=== PATIENT | male | born 1935 | race Caucasian/White ===

== ENCOUNTER 2017-05-27 17:15 | Emergency (ER) | payer MEDICARE ==
[2017-05-27 22:55] LABS: Hematocrit 44 % (42-52); Hemoglobin 15.3 g/dl (14.0-18.0); Mean Corpuscular HGB Conc 35 g/dl (31-36); Mean Corpuscular Hemoglobin 33 pg (27-31); Mean Corpuscular Volume 93 fL (80-94); Mean Platelet Volume 7 um3 (7.4-10.4); Red Blood Count 4.71 10^6/ul (4.0-5.4); Red Cell Distribution Width 14 % (10.5-15); White Blood Count 9.5 10^3/ul (3.5-10.8)
[2017-05-27 23:08] LABS: Albumin 3.9 g/dL (3.2-5.2); BUN/Creatinine Ratio 16.1 (8-20); C Reactive Protein 6.26 mg/L (< 5.00); Calcium 9.5 mg/dL (8.6-10.3); EGFR African American 100.8 (>60); EGFR Non-African American 78.4 (>60); Potassium 4.1 mmol/L (3.5-5.0); Total Bilirubin 0.4 mg/dL (0.2-1.0); Total Protein 6.9 g/dL (6.4-8.9)
[2017-05-28 00:50] LABS: Urine Bilirubin Negative (Negative); Urine Glucose Negative (Negative); Urine Nitrite Negative (Negative)
[2017-05-28 03:22] VITALS: BP 140/60
--- NOTE | 2017-05-28 07:39 | RAD ---
HISTORY: Fatigue COMPARISONS: None VIEWS: 1: frontal portable view of the chest at 10:43 PM. The right costophrenic angle is partially cut off. FINDINGS: LINES AND TUBES: None. CARDIOMEDIASTINAL SILHOUETTE: The cardiomediastinal silhouette is normal for portable technique. PLEURA: The visualized costophrenic angles are sharp. No pleural abnormalities are noted. LUNG PARENCHYMA: The lungs are clear. ABDOMEN: The upper abdomen is clear. There is no subphrenic gas. BONES AND SOFT TISSUES: Degenerative changes are noted IMPRESSION: LIMITED STUDY. NO ACTIVE CARDIOPULMONARY DISEASE.
--- NOTE | 2017-05-29 12:44 | ED ---
Willi Oneill Benjamin, scribed for YuriubjosemanueliSylvie MD on 05/27/17 at 2255 . Complex/Multi-Sys Presentation - HPI Summary HPI Summary: 81yo male c/o tiredness and low energy for couple of weeks. Pt denies N/V/D, fever, CP, SOB, or any change in appetite, but reports increasingly feeling sleepy all the time. Pt has hx of head injury upon a mechanical fall 5 months ago, which pt had normal CT head. 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 Not on any medicines for his DM. FHx of DM. No focal deficits. No trouble moving all four extremities. - History Of Current Complaint Chief Complaint: EDGeneral Time Seen by Provider: 05/27/17 22:29 Hx Obtained From: Patient, Family/Welfare Administrator - Onset/Duration: Gradual Onset, Lasting Weeks, Still Present Timing: Constant Severity Currently: Mild Severity Initially: Mild Location: Negative Associated Signs And Symptoms: Positive: Weakness. Negative: SOB, Chest Pain, Nausea, Vomiting, Diarrhea, Abdominal Pain - Allergies/Home Medications Allergies/Adverse Reactions: Allergies Allergy/AdvReac Type Severity Reaction Status Date / Time No Known Allergies Allergy Verified 02/14/16 10:16 PMH/Surg Hx/FS Hx/Imm Hx Endocrine/Hematology History: Reports: Hx Diabetes - borderline Denies: Hx Anticoagulant Therapy, Hx Thyroid Disease Cardiovascular History: Denies: Hx Congestive Heart Failure, Hx Deep Vein Thrombosis, Hx Hypertension , Hx Myocardial Infarction, Hx Pacemaker/ICD Respiratory History: Denies: Hx Asthma, Hx Chronic Obstructive Pulmonary Disease (COPD), Hx Lung Cancer, Hx Pneumonia, Hx Pulmonary Embolism GI History: Denies: Hx Gall Bladder Disease, Hx Gastrointestinal Bleed, Hx Ulcer, Hx Urosepsis History: Denies: Hx Kidney Stones, Hx Renal Disease Sensory History: Denies: Hx Hearing Aid Neurological History: Denies: Hx Dementia, Hx Migraine, Hx Seizures, Hx Transient Ischemic Attacks (TIA) Psychiatric History: Reports: Hx Depression Denies: Hx Anxiety, Hx Panic Disorder, Hx Schizophrenia, Hx Bipolar Disorder - Surgical History Surgery Procedure, Year, and Place: tonsils and adenoids; inguinal hernia Infectious Disease History: Yes Infectious Disease History: Denies: Hx Clostridium Difficile, Hx Hepatitis, Hx Human Immunodeficiency Virus (HIV), Hx of Known/Suspected MRSA, Hx Shingles, Hx Tuberculosis, Hx Known/ Suspected VRE, Hx Known/Suspected VRSA, History Other Infectious Disease, Traveled Outside the [place] in Last 30 Days - Family History Known Family History: Positive: Diabetes Negative: Cardiac Disease, Hypertension - Social History Lives: With Family Alcohol Use: Rare Hx Substance Use: No Substance Use Type: Reports: None Hx Tobacco Use: No Smoking Status (MU): Never Smoked Tobacco Have You Smoked in the Last Year: No Review of Systems Positive: Fatigue. Negative: Fever, Chills Eyes: Negative ENT: Negative Cardiovascular: Negative Negative: Chest Pain Negative: Shortness Of Breath Negative: Abdominal Pain, Vomiting, Diarrhea, Nausea Genitourinary: Negative Musculoskeletal: Negative Skin: Negative Neurological: Negative Psychological: Normal All Other Systems Reviewed And Are Negative: Yes Physical Exam - Summary Physical Exam Summary: Appearance: Well-Appearing, no pain distress, well nourished Skin: warm, skin color reflects adequate perfusion, dry, no acute skin lesions Head Exam: Normal Eye Exam: EOMI, PERRL, conjunctiva clear ENT: pharynx nml, TM nml Neck exam: Supple, nontender Respiratory Exam: CTA, breath sounds present, no rales, no rhonchi, no wheezes Cardiovascular Exam: RRR, S1, S2, No Murmur, No rub, No gallops, pulses symmetrical Abdomen Description: +BS, Nontender, Soft, no guarding, no rebound, nondistended, no organomegaly Musculoskeletal: Normal, Strength/ROM Intact Neurological Exam: nml, sens/motor intact, A&Ox3, no cerebellar dysfunction Psychological Exam: affect/mood appropriate Triage Information Reviewed: Yes Vital Signs On Initial Exam: Initial Vitals Temp Pulse Resp BP Pulse Ox 97.3 F 59 18 146/66 95 05/27/17 17:29 05/27/17 17:29 05/27/17 17:29 05/27/17 17:29 05/27/17 17:29 Vital Signs Reviewed: Yes - Marisela Coma Scale Coma Scale Total: 15 Diagnostics - Vital Signs Vital Signs Temp Pulse Resp BP Pulse Ox 05/27/17 22:06 61 114/86 95 05/27/17 22:05 57 94 05/27/17 20:25 97.7 F 59 18 146/62 97 05/27/17 17:29 97.3 F 59 18 146/66 95 - Laboratory Lab Results: Lab Results 05/27/17 05/27/17 05/27/17 Range/Units 22:41 22:41 22:41 WBC 9.5 (3.5-10.8) 10^3/ul RBC 4.71 (4.0-5.4) 10^6/ul Hgb 15.3 (14.0-18.0) g/dl Hct 44 (42-52) % MCV 93 (80-94) fL MCH 33 H (27-31) pg MCHC 35 (31-36) g/dl RDW 14 (10.5-15) % Plt Count 286 (150-450) 10^3/ul MPV 7 L (7.4-10.4) um3 INR (Anticoag Therapy) (0.89-1.11) Sodium 137 (133-145) mmol/L Potassium 4.1 (3.5-5.0) mmol/L Chloride 101 (101-111) mmol/L Carbon Dioxide 30 (22-32) mmol/L Anion Gap 6 (2-11) mmol/L BUN 15 (6-24) mg/dL Creatinine 0.93 (0.67-1.17) mg/dL Est GFR ( Amer) 100.8 (>60) Est GFR (Non-Af Amer) 78.4 (>60) BUN/Creatinine Ratio 16.1 (8-20) Glucose 116 H (70-100) mg/dL Lactic Acid (0.5-2.0) mmol/L Calcium 9.5 (8.6-10.3) mg/dL Total Bilirubin 0.40 (0.2-1.0) mg/dL AST 18 (13-39) U/L ALT 21 (7-52) U/L Alkaline Phosphatase 58 (34-104) U/L Total Creatine Kinase 122 (10-223) U/L CK-MB (CK-2) 2.3 (0.6-6.3) ng/mL Troponin I 0.00 (<0.04) ng/mL C-Reactive Protein 6.26 H (< 5.00) mg/L B-Natriuretic Peptide 49 ( - 100) pg/mL Total Protein 6.9 (6.4-8.9) g/dL Albumin 3.9 (3.2-5.2) g/dL Globulin 3.0 (2-4) g/dL Albumin/Globulin Ratio 1.3 (1-3) Urine Color Urine Appearance Urine pH (5-9) Ur Specific [place] (1.010-1.030) Urine Protein (Negative) Urine Ketones (Negative) Urine Blood (Negative) Urine Nitrate (Negative) Urine Bilirubin (Negative) Urine Urobilinogen (Negative) Ur Leukocyte Esterase (Negative) Urine Glucose (Negative) 05/27/17 05/27/17 05/28/17 Range/Units 22:41 22:41 00:35 WBC (3.5-10.8) 10^3/ul RBC (4.0-5.4) 10^6/ul Hgb (14.0-18.0) g/dl Hct (42-52) % MCV (80-94) fL MCH (27-31) pg MCHC (31-36) g/dl RDW (10.5-15) % Plt Count (150-450) 10^3/ul MPV (7.4-10.4) um3 INR (Anticoag Therapy) 0.94 (0.89-1.11) Sodium (133-145) mmol/L Potassium (3.5-5.0) mmol/L Chloride (101-111) mmol/L Carbon Dioxide (22-32) mmol/L Anion Gap (2-11) mmol/L BUN (6-24) mg/dL Creatinine (0.67-1.17) mg/dL Est GFR ( Amer) (>60) Est GFR (Non-Af Amer) (>60) BUN/Creatinine Ratio (8-20) Glucose (70-100) mg/dL Lactic Acid 1.7 (0.5-2.0) mmol/L Calcium (8.6-10.3) mg/dL Total Bilirubin (0.2-1.0) mg/dL AST (13-39) U/L ALT (7-52) U/L Alkaline Phosphatase (34-104) U/L Total Creatine Kinase (10-223) U/L CK-MB (CK-2) (0.6-6.3) ng/mL Troponin I (<0.04) ng/mL C-Reactive Protein (< 5.00) mg/L B-Natriuretic Peptide ( - 100) pg/mL Total Protein (6.4-8.9) g/dL Albumin (3.2-5.2) g/dL Globulin (2-4) g/dL Albumin/Globulin Ratio (1-3) Urine Color Yellow Urine Appearance Clear Urine pH 5.0 (5-9) Ur Specific [place] 1.021 (1.010-1.030) Urine Protein Negative (Negative) Urine Ketones Negative (Negative) Urine Blood Negative (Negative) Urine Nitrate Negative (Negative) Urine Bilirubin Negative (Negative) Urine Urobilinogen Negative (Negative) Ur Leukocyte Esterase Negative (Negative) Urine Glucose Negative (Negative) Result Diagrams: 05/27/17 22:41 05/27/17 22:41 Lab Statement: Any lab studies that have been ordered have been reviewed, and results considered in the medical decision making process. - Radiology CXR Xray Interpretation: No Acute Changes - No acute cardiopulmonary disease. Radiology Interpretation Completed By: ED Physician - EKG 2479. Cardiac Rate: Bradycardia - 52bpm EKG Rhythm: Sinus Bradycardia EKG Interpretation: low voltage across all leads. No acute ischemic changes Complex Multi-Symp Course/Dx Course Of Treatment: Reviewed pts medication and allergy lists. High blood pressure noted. - Diagnoses Provider Diagnoses: Fatigue Discharge - Discharge Plan Condition: Stable Disposition: HOME Patient Education Materials: Weakness (ED) Referrals: Gaby Dickey MD [Medical Doctor] - Marianela Botello MD [Primary Care Provider] - The documentation as recorded by the Willi hauser Benjamin accurately reflects the service I personally performed and the decisions made by Alvina peck Afoma Frances, MD.
== END 2017-05-28 01:12 | disposition home or self-care (01) ==
LOC: ED 17:15
DX: R53.83 Other fatigue (principal); R53.1 Weakness; E11.9 Type 2 diabetes mellitus without complications
CPT/HCPCS: 36415; 71010; 80053; 81003; 82550; 82553; 83605; 83880; 84484; 85027; 85610; 86140; 93005; 99283

== ENCOUNTER 2018-06-17 14:22 | Emergency (ER) | payer MEDICARE ==
--- OUTSIDE RECORDS SUMMARY | 2018-06-17 14:30 | XMS REPORT ---
:1935 External Reference #:[id number] Author Organization [facility] Address [address] [place] [address] Phone [phone] Care Team Providers Name Role Phone Marianela Botello Care Team Information Websphere Consultant Unavailable Marianela Botello Primary Care Physician Unavailable Payers Type Date Identification Numbers Payment Provider Subscriber Medicare Primary Effective: Policy Number: Medicare [place] Deny Bundy 2002 [id number] PayID: [id number] [address] [place] [address] Medigap Part B Effective: Policy Number: [facility] Deny Valle 2013 [id number] Options Nitin Group Name: [facility] Supplement Plan [id number] PayID: [id number] [place] [address] Problems Date Description Provider Status Onset: 01/31/2018 Type 2 diabetes mellitus Marianela Botello M.D. Active Onset: 04/25/2017 Impaired fasting glycaemia Marianela Botello M.D. 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 Active Onset: 05/23/2012 Symptom of skin and integumentary Marianela Botello M.D. Active tissue Onset: 05/23/2012 Psoriasis Marianela Botello M.D. Active Onset: 05/23/2012 Benign prostatic hypertrophy without Marianela Botello M.D. Active outflow obstruction Onset: 05/23/2012 Arthralgia of the ankle and/or foot Marianela Botello M.D. Active Onset: 05/23/2012 Overweight Marianela Botello M.D. Active Onset: 11/30/2011 Depressive disorder Marianela Botello M.D. Active Onset: 11/30/2011 Nocturia Marianela Botello M.D. Active Family History Date Family Member(s) Problem(s) Comments General No family hx lung,colon, breast.No RI/Stroke. Father . 70. DM Mother 66, ovarian cancer. Number of Children 4 girls with first , one boy with current , Lizzie. All healthy. First Brother healthy. [place]. Second Brother as of 03/26/2017. healthy. [place]. First Sister early 60's, Cancer started in her spine. 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 Cigarette Use Used to smoke a pipe Quit age mid 20's. ETOH Use Social Alcohol 6 drinks a year. Smoking Patient is a former smoker Exercise Type/Frequency Exercises sporadically low Current back pain with walking, looking into joining gym Seat Belt/Car Seat Always uses a seat belt Allergies, Adverse Reactions, Alerts Date Description Reaction Status Severity Comments 11/30/2011 NKDA active 11/30/2010 Nkma inactive Medications Medication Date Status Form Strength Qnty SIG Indications Ordering Provider Gluco Perfect 3 11/22 Active Device 3Meter 1unit one device R73.01 [place] Blood Glucose /2017 s so twice Jeff, Meter daily dosing [employer] Citalopram 07/08 Active Tablets 40mg 30tab Take One F32.9 Marianela Patel Hydrobromide /2013 s Tablet By Ayan, Mouth Once M.D. Daily Aspirin 81 05/10 Active Tablets 81mg 1 by mouth every day [facility] Finasteride Active Tablets 5mg 1 by mouth Unknown /0000 every day Donepezil HCL Active Tablets 10mg 1 by mouth Unknown /0000 every day Vitamin D Active Capsules 2000Unit 1 by mouth Unknown /0000 every day Metformin HCL 11/22 Hx Tablets 500mg 90tab 1 by mouth R73.01 s every day Jeff, - for two [employer]NEY 01/31 weeks, increase to 2 by mouth daily if tolerated after two weeks Advair Diskus 10/15 Hx Aerosol 100-50mcg 60uni 1 puff twice /Dose ts a day, rinse Jeff, - after use [employer]NEY 10/25 Cyanocobalamin 04/25 Hx Solution 1000mcg/M 12uni inject 1ml Marianela L. /2016 L ts intramuscula Ayan, - rly once a M.D. Vitamin D 04/02 Hx Capsules [id number] 8caps take 1 Marianela L. (Ergocalciferol /2015 capsule by Ayan, ) - mouth once M.D. 03/18 weekly for weeks. Physical 01/18 Hx evaluate and M54.5 Marianela L. 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 ER (SR) /2014 ER 12HR s twice a day. Ayan, - in the in M.D. 01/18 the and second pill before 1 pm. mail to home Vitamin D 05/10 Hx Capsules [id number] 8caps take 1 E55.9 Marianela L. (Ergocalciferol /2014 capsule by Ayan, ) - mouth once M.D. 03/08 weekly for weeks. no refills Bupropion HCL 03/29 Hx Tablets 100mg 60tab 1 by mouth 311 Marianela L. ER (SR) /2014 ER 12HR s twice a day. Ayan, - in the in M.D. 05/10 the and second pill before 1 pm. mail to home Citalopram 03/29 Hx Tablets 10mg 43tab 2 po daily x 311 Marianela L. Hydrobromide /2014 s 2 weeks Ayan, - then 1 po M.D. 01/18 daily x weeks. then 1 po every other day x 2 weeks. then 1 po every 2 days x 2 weeks . 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 then Ayan, - bid M.D. 03/29 thereafter. in the am and second pill before 1 pm. Debrox 05/10 Hx Solution 6.5% 1bott 5-10 drops 380.4 Jasmyn le in affected [place], - ear twice a M.D. Zostavax 03/19 Hx Solution [id number]/ 1unit in ject sq V70.0 Marianela Patel /2013 Rec 0.65ML s Ayan, - M.D. 05/09 Citalopram 03/19 Hx Tablets 10mg 43tab 2 po daily x 311 Marianela LShruti Hydrobromide s 2 weeks Ayan, - then 1 po M.D. 07/08 daily x 2 weeks. then 1 po every other day x 2 weeks. then 1 po every 2 days x 2 weeks . Vitamin D 03/19 Hx Capsules [id number] 10cap 1 po weekly 268.9 Marianela LShruti /2013 s x 10. no Ayan, - refills M.D. 07/08 Physical 02/25 Hx evaluate/serenity 278.02 Marianela Patel Therapy at Ayan, - M.D. 05/09 low back pain deconditioni ng Tamsulosin HCL 03/19 Hx Capsules 0.4mg 30cap Take One N40.0 Marianela LShruti s Capsule By Ayan - Mouth Once M.D. 10/25 Daily Minutes After Eating Terazosin HCL 05/23 Hx Capsules 5mg 120ca 1 PO bid 600.00 Marianela LShruti ps Johan BotelloDShruti 03/19 Clobetasol 05/23 Hx Cream 0.05% 30gm thin layer 696.1 Marianela Patel Propionate bid to Johan Botello affected M.DShruti 02/25 areas only 2 weeks at atime. Terazosin HCL 11/29 Hx Capsules 5mg 60cap 1 po at hs x 788.43 Marianela Patel s 2 weeks, Johan Botello then 2 po M.D. 02/09 thereafter. Physical 03/29 Hx evaluate and 278.02 Marianela LShruti Therapy treat low Johan Botello back pain, M.DShruti 04/04 knee pain, deconditioni ng Terazosin HCL 03/29 Hx Capsules 1mg 30cap 1 po at 600.00 Marianela Patel s bedtime Johan Botello M.D. 05/23 Citalopram 11/30 Hx Tablets 40mg 30tab Take One 311 Marianela LShruti Hydrobromid s Tablet By Ayan - Mouth Every M.D. Citalopram Hx Tablets 40mg 30tab 1 po qd Unknown Hydrobromide /0000 s - 03/29 Aspirin Ec Hx Tablets 325mg 1 po qd Unknown /0000 DR - 05/10 Donepezil HCL Hx Tablets 10mg 1 by mouth Unknown /0000 every day - 11/22 Medications Administered in Office Medication Date Status Form Strength Qnty SIG Indications Ordering Provider B-12 Injection 05/12/ Administered Injection Jaime Little M.D. Injection 05/12/ Administered Injection Jaime Barnes Subcutaneous Or 2018 Rhys Little M.D. B-12 Injection 12/17/ Administered Injection Marianela Botello M.D. Injection 12/17/ Administered Injection Marianela Patel Subcutaneous Or 2018 Rhys Botello M.D. B-12 Injection 07/25/ Administered Injection Marianela Botello M.D. Injection 07/25/ Administered Injection Marianela Patel Subcutaneous Or 2017 Ayan Intramuscular M.DShruti B-12 Injection 06/25/ Administered Injection Marianela Patel 2017 Derrek Botello Injection 06/25/ Administered Injection Marianela Patel Subcutaneous Or 2016 Ayan Intramuscular M.Tatiana B-12 Injection 04/25/ Administered Injection Marianela Patel 2016 Derrek Botello Injection 04/25/ Administered Injection Marianela Patel Subcutaneous Or 2017 Ayan Intramuscular M.DShruti Immunizations CPT Code Status Date Vaccine Reaction Lot # [id number] Given 07/08/2014 Pneumococcal Conjugate Vacc-13 [id number] Given 03/29/2011 Tdap Tetanus, W Pertussis no reaction noted [id number] Vital Signs Date Vital Result Comment 06/12/2018 BP Systolic 144 mmHg BP Diastolic 76 mmHg Heart Rate 66 /min Body Temperature 98.3 F Respiratory Rate 18 /min Height 66 inches 5'6" Weight 259.00 lb BMI (Body Mass Index) 41.8 kg/m2 05/12/2018 BP Systolic 152 mmHg BP Diastolic 64 mmHg Heart Rate 76 /min Body Temperature 97.3 F Height 66 inches 5'6" Weight 257.00 lb BMI (Body Mass Index) 41.5 kg/m2 01/31/2018 BP Systolic 130 mmHg BP Diastolic 50 mmHg Heart Rate 60 /min Body Temperature 97.9 F Respiratory Rate 16 /min Height 66 inches 5'6" Weight 256.00 lb BMI (Body Mass Index) 41.3 kg/m2 12/17/2017 BP Systolic 142 mmHg BP Diastolic 70 mmHg Heart Rate 60 /min Body Temperature 97.6 F Respiratory Rate 16 /min Height 66 inches 5'6" Weight 256.00 lb BMI (Body Mass Index) 41.3 kg/m2 11/22/2017 BP Systolic 130 mmHg BP Diastolic 72 mmHg Heart Rate 75 /min Body Temperature 97.0 F Weight 256.38 lb 10/25/2017 BP Systolic 136 mmHg BP Diastolic 80 mmHg Heart Rate 62 /min Body Temperature 97.6 F Respiratory Rate 18 /min O2 % BldC Oximetry 95 % Height 65.5 inches 5'5.50" Weight 255.00 lb BMI (Body Mass Index) 41.8 kg/m2 04/25/2017 BP Systolic 130 mmHg BP Diastolic 80 mmHg Heart Rate 60 /min Body Temperature 98.5 F Respiratory Rate 18 /min Height 65.5 inches 5'5.50" Weight 249.00 lb BMI (Body Mass Index) 40.8 kg/m2 04/09/2017 BP Systolic 130 mmHg BP Diastolic 72 mmHg Heart Rate 72 /min Body Temperature 97.9 F Height 65.5 inches 5'5.50" Weight 250.00 lb BMI (Body Mass Index) 41.0 kg/m2 03/26/2017 BP Systolic 128 mmHg BP Diastolic 70 mmHg Heart Rate 68 /min Body Temperature 98.0 F Respiratory Rate 18 /min Height 65.5 inches 5'5.50" Weight 249.00 lb BMI (Body Mass Index) 40.8 kg/m2 Right Visual Acuity Distance 20/40 Left Visual Acuity Distance 20/30 03/18/2017 BP Systolic 120 mmHg BP Diastolic 80 mmHg Heart Rate 64 /min Body Temperature 98.0 F Respiratory Rate 18 /min Height 65.75 inches 5'5.75" Weight 247.00 lb BMI (Body Mass Index) 40.2 kg/m2 03/08/2016 BP Systolic 120 mmHg BP Diastolic 70 mmHg Heart Rate 64 /min Body Temperature 98.3 F Respiratory Rate 18 /min Height 65.75 inches 5'5.75" Weight 245.00 lb BMI (Body Mass Index) 39.8 kg/m2 01/19/2016 BP Systolic 120 mmHg BP Diastolic 68 mmHg Heart Rate 68 /min Body Temperature 98.3 F Respiratory Rate 18 /min Height 65.75 inches 5'5.75" Weight 244.00 lb BMI (Body Mass Index) 39.7 kg/m2 05/10/2015 BP Systolic 128 mmHg BP Diastolic 52 mmHg Heart Rate 60 /min Body Temperature 97.3 F Height 65.75 inches 5'5.75" Weight 234.00 lb BMI (Body Mass Index) 38.1 kg/m2 04/07/2015 BP Systolic 146 mmHg BP Diastolic 60 mmHg Heart Rate 54 /min Body Temperature 97.2 F Height 65.75 inches 5'5.75" 03/29/2015 BP Systolic 120 mmHg BP Diastolic 70 mmHg Heart Rate 60 /min Body Temperature 98.3 F Respiratory Rate 18 /min Height 65.75 inches 5'5.75" Weight 228.00 lb BMI (Body Mass Index) 37.1 kg/m2 11/01/2014 BP Systolic 136 mmHg BP Diastolic 62 mmHg Heart Rate 80 /min Body Temperature 97.3 F Respiratory Rate 18 /min O2 % BldC Oximetry 96 % Height 65.75 inches 5'5.75" Weight 235.00 lb BMI (Body Mass Index) 38.2 kg/m2 07/08/2014 BP Systolic 134 mmHg BP Diastolic 60 mmHg Heart Rate 66 /min Body Temperature 97.4 F Respiratory Rate 16 /min Height 65.75 inches 5'5.75" Weight 240.38 lb BMI (Body Mass Index) 39.1 kg/m2 05/20/2014 BP Systolic 138 mmHg BP Diastolic 62 mmHg Heart Rate 76 /min Body Temperature 97.3 F Respiratory Rate 16 /min Height 65.75 inches 5'5.75" Weight 238.50 lb BMI (Body Mass Index) 38.8 kg/m2 05/10/2014 BP Systolic 142 mmHg BP Diastolic 66 mmHg Heart Rate 72 /min Body Temperature 97.1 F Height 65.75 inches 5'5.75" Weight 238.50 lb BMI (Body Mass Index) 38.8 kg/m2 03/19/2014 BP Systolic 140 mmHg BP Diastolic 76 mmHg Heart Rate 70 /min Body Temperature 98.1 F Respiratory Rate 17 /min Height 65.75 inches 5'5.75" Weight 233.00 lb BMI (Body Mass Index) 37.9 kg/m2 02/25/2014 BP Systolic 132 mmHg BP Diastolic 60 mmHg Heart Rate 66 /min Body Temperature 97.9 F Respiratory Rate 16 /min Height 65.75 inches 5'5.75" Weight 243.38 lb BMI (Body Mass Index) 39.6 kg/m2 03/19/2013 BP Systolic 134 mmHg BP Diastolic 66 mmHg Heart Rate 60 /min Body Temperature 97.7 F Respiratory Rate 16 /min Height 65.75 inches 5'5.75" Measured Weight 234.50 lb BMI (Body Mass Index) 38.1 kg/m2 Right Visual Acuity Distance 20/30 Left Visual Acuity Distance 20/25 02/09/2013 BP Systolic 124 mmHg BP Diastolic 60 mmHg Heart Rate 60 /min Body Temperature 96.0 F Respiratory Rate 17 /min Height 66.5 inches 5'6.50" Weight 236.00 lb BMI (Body Mass Index) 37.5 kg/m2 05/23/2012 BP Systolic 134 mmHg BP Diastolic 60 mmHg Heart Rate 66 /min Body Temperature 98.1 F Height 66.5 inches 5'6.50" Weight 240.00 lb BMI (Body Mass Index) 38.2 kg/m2 11/30/2011 BP Systolic 108 mmHg BP Diastolic 62 mmHg Heart Rate 72 /min Respiratory Rate 13 /min Height 66.5 inches 5'6.50" Weight 237.00 lb BMI (Body Mass Index) 37.7 kg/m2 04/04/2011 BP Systolic 136 mmHg BP Diastolic 64 mmHg Heart Rate 72 /min Height 66.5 inches 5'6.50" Weight 236.00 lb BMI (Body Mass Index) 37.5 kg/m2 03/29/2011 BP Systolic 130 mmHg BP Diastolic 60 mmHg Heart Rate 60 /min Body Temperature 97.7 F Respiratory Rate 20 /min Height 66.5 inches 5'6.50" Weight 235.00 lb BMI (Body Mass Index) 37.4 kg/m2 11/30/2010 BP Systolic 110 mmHg BP Diastolic 64 mmHg Heart Rate 60 /min Body Temperature 98.1 F Height 66 inches 5'6" Weight 232.00 lb BMI (Body Mass Index) 37.4 kg/m2 Results Test Date Test Result H/L Range Note Laboratory test finding 05/12/2018 Vitamin B-12 219 pg/mL Low 230-1050 1 Laboratory test finding 05/12/2018 Hemoglobin A1c (Fma) 6.3 % % High 4.1- 5.7 Laboratory test finding 01/31/2018 Hemoglobin A1c (Fma) 6.4% % High 4.1- 5.7 Basic Metabolic Profile 12/17/2017 Sodium 137 mEq/L 134-149 Potassium 4.6 mEq/L 3.6-5.5 Chloride 99 mEq/L 94-112 Carbon Dioxide 30 mEq/L 21-32 Glucose 129 mg/dL High 70-105 2 BUN 13 mg/dL 6-26 Creatinine 0.8 mg/dL 0.6-1.4 BUN/Creat Ratio 16.3 CALC 8.0-36.0 Calcium 9.0 mg/dL 8.6-10.2 GFR Non- >60 ml/min/1.73m^ >=60 GFR >60 ml/min/1.73m^ >=60 Laboratory test finding 12/12/2017 Vitamin B-12 126 pg/mL Low 230-1050 3 Comprehensive Metabolic Prof 11/05/2017 Sodium 142 mEq/L 134-149 Potassium 4.4 mEq/L 3.6-5.5 Chloride 102 mEq/L 94-112 Carbon Dioxide 28 mEq/L 21-32 Glucose 148 mg/dL High 70-105 BUN 16 mg/dL 6-26 Creatinine 0.9 mg/dL 0.6-1.4 BUN/Creat Ratio 17.8 CALC 8.0-36.0 Calcium 9.1 mg/dL 8.6-10.2 Total Protein 6.7 g/dL 6.4-8.3 Albumin 4.1 g/dL 3.8-5.5 Globulin 2.6 g/dL 2.0-4.8 A/G Ratio 1.6 CALC 0.6-2.3 Alk. Phosphatase 59 U/L 22-95 Alt (SGPT) 23 U/L 7-35 Ast (Sgot) 19 U/L 5-34 Total Bilirubin 0.3 mg/dL 0.2-1.3 GFR Non- >60 ml/min/1.73m^ >=60 GFR >60 ml/min/1.73m^ >=60 Lipid Profile 11/05/2017 Cholesterol 204 mg/dL High 120-200 Triglycerides 184 mg/dL 30-200 HDL Cholesterol 49 mg/dL 30-70 LDL (Calculated) 118 CALC 0-129 VLDL Cholesterol 37 mg/dL 0-50 HDL Risk Factor 4.2 CALC 0.0-4.4 Laboratory test finding 11/05/2017 Hemoglobin A1c (Fma) 6.2 % High 4.1- 5.7 Urinalysis Profile 05/28/2017 Urine Color Yellow Urine Appearance Clear Urine Specific [place] 1.021 1.010-1.030 Urine pH 5.0 5-9 Urine Urobilinogen Negative Negative Urine Ketones Negative Negative Urine Protein Negative Negative Urine Leukocytes Negative Negative Urine Blood Negative Negative Urine Nitrite Negative Negative Urine Bilirubin Negative Negative Urine Glucose Negative Negative Laboratory test finding 05/27/2017 Lactic Acid 1.7 mmol/L 0.5-2.0 4 Inr/Protime 05/27/2017 Inr 0.94 0.89-1.11 CBC No Diff 05/27/2017 White Blood Count 9.5 10^3/uL 3.5-10.8 Red Blood Count 4.71 10^6/uL 4.0-5.4 Hemoglobin 15.3 g/dL 14.0-18.0 Hematocrit 44 % 42-52 Mean Corpuscular Volume 93 fL 80-94 Mean Corpuscular Hemoglobin 33 pg High 27-31 Mean Corpuscular HGB Conc 35 g/dL 31-36 Red Cell Distribution Width 14 % 10.5-15 Platelet Count 286 10^3/uL 150-450 Mean Platelet Volume 7 um3 Low 7.4-10.4 CKMB 05/27/2017 CKMB ng/mL 2.3 ng/mL 0.6-6.3 Laboratory test finding 05/27/2017 Creatine Kinase(CK) 122 U/L 10-223 C Reactive Protein 6.26 mg/L High < 5.00 5 Troponin I 0.00 ng/mL <0.04 Comp Metabolic Panel 05/27/2017 Sodium 137 mmol/L 133-145 Potassium 4.1 mmol/L 3.5-5.0 Chloride 101 mmol/L 101-111 Co2 Carbon Dioxide 30 mmol/L 22-32 Anion Gap 6 mmol/L 2-11 Glucose 116 mg/dL High 70-100 Blood Urea Nitrogen 15 mg/dL 6-24 Creatinine 0.93 mg/dL 0.67-1.17 BUN/Creatinine Ratio 16.1 8-20 Calcium 9.5 mg/dL 8.6-10.3 Total Protein 6.9 g/dL 6.4-8.9 Albumin 3.9 g/dL 3.2-5.2 Globulin 3.0 g/dL 2-4 Albumin/Globulin Ratio 1.3 1-3 Total Bilirubin 0.40 mg/dL 0.2-1.0 Alkaline Phosphatase 58 U/L 34-104 Alt 21 U/L 7-52 Ast 18 U/L 13-39 Egfr Non- 78.4 >60 Egfr 100.8 >60 6 Laboratory test 05/27/2017 B-Type Natriuretic 49 pg/mL 7 finding Peptide BNP Laboratory test 04/25/2017 RPR Non Reactive Non Reactive 8 finding Laboratory test 03/18/2017 Hemoglobin A1c (Fma) 6.1 % High 4.1-5.7 finding Laboratory test 03/18/2017 Folate Level 13.80 ng/mL 3.00-16.00 finding LDL, Direct 58 mg/dL 0-130 Complete Blood Count 03/18/2017 WBC 7.0 x10^3/UL 3.6-9.6 RBC 5.01 x10^6/UL 3.90-5.70 HGB 16.0 g/dL 12.1-17.2 HCT 47 % 36-50 MCV 94.0 fL 82.2-97.4 MCH 32.0 pg 27.6-33.3 MCHC 33.9 g/dL 33.0-35.5 RDW 15.1 % High 11.6-13.7 PLT 298 x10^3/UL 150-400 MPV 6.3 fL Low 7.4-10.4 Gran # 5.0 x10^3/UL 1.5-7.2 Lymph# 1.7 x10^3/UL 0.7-4.9 [place]# 0.3 x10^3/UL 0.1-0.9 Gran % 69.4 % 42.2-75.2 Lymph % 25.3 % 20.5-51.1 [place]% 5.3 % 1.7-9.3 Lipid Profile 03/18/2017 Cholesterol 186 mg/dL 120-200 Triglycerides 643 mg/dL High 30-200 HDL Cholesterol 33 mg/dL 30-70 LDL (Calculated) 24 CALC 0-129 VLDL Cholesterol 129 mg/dL High 0-50 HDL Risk Factor 5.6 CALC High 0.0-4.4 Comprehensive Metabolic Prof 03/18/2017 Sodium 138 mEq/L 134-149 Potassium 4.6 mEq/L 3.6-5.5 Chloride 102 mEq/L 94-112 Carbon Dioxide 24 mEq/L 21-32 Glucose 122 mg/dL High 70-105 BUN 14 mg/dL 6-26 Creatinine 0.9 mg/dL 0.6-1.4 BUN/Creat Ratio 15.6 CALC 8.0-36.0 Calcium 9.0 mg/dL 8.6-10.2 Total Protein 7.2 g/dL 6.4-8.3 Albumin 4.6 g/dL 3.8-5.5 Globulin 2.6 g/dL 2.0-4.8 A/G Ratio 1.8 CALC 0.6-2.3 Alk. Phosphatase 80 U/L 22-95 Alt (SGPT) 17 U/L 7-35 Ast (Sgot) 14 U/L 5-34 Total Bilirubin 0.4 mg/dL 0.2-1.3 GFR Non- >60 ml/min/1.73m^ >=60 GFR >60 ml/min/1.73m^ >=60 Laboratory test finding 03/18/2017 TSH 2.59 mIU/L 0.50-6.00 Vitamin B-12 201 pg/mL Low 230-1050 Magnesium, Serum 1.9 mEq/L 1.2-2.1 Laboratory test finding 06/12/2016 PSA Diagnostic 0.476 ng/mL 0-4.0 9 Laboratory test finding 03/08/2016 Hemoglobin A1c (Fma) 6.2 % High 4.1- 5.7 Laboratory test finding 03/08/2016 TSH 2.00 mIU/L 0.50-6.00 Free T4 0.89 ng/dL 0.75-1.54 Complete Blood Count 03/08/2016 WBC 5.8 x10^3/UL 3.6-9.6 RBC 4.74 x10^6/UL 3.90-5.70 HGB 15.7 g/dL 12.1-17.2 HCT 46 % 36-50 MCV 96.0 fL 82.2-97.4 MCH 33.0 pg 27.6-33.3 MCHC 34.4 g/dL 33.0-35.5 RDW 14.9 % High 11.6-13.7 PLT 283 x10^3/UL 150-400 MPV 6.4 fL Low 7.4-10.4 Gran # 4.2 x10^3/UL 1.5-7.2 Lymph# 1.4 x10^3/UL 0.7-4.9 [place]# 0.2 x10^3/UL 0.1-0.9 Gran % 69.4 % 42.2-75.2 Lymph % 25.6 % 20.5-51.1 [place]% 5.0 % 1.7-9.3 Lipid Profile 03/08/2016 Cholesterol 222 mg/dL High 120-200 Triglycerides 161 mg/dL 30-200 HDL Cholesterol 49 mg/dL 30-70 LDL (Calculated) 141 CALC High 0-129 VLDL Cholesterol 32 mg/dL 0-50 HDL Risk Factor 4.5 CALC High 0.0-4.4 Comprehensive Metabolic Prof 03/08/2016 Sodium 147 mEq/L 134-149 Potassium 4.4 mEq/L 3.6-5.5 Chloride 107 mEq/L 94-112 Carbon Dioxide 28 mEq/L 21-32 Glucose 132 mg/dL High 70-105 BUN 16 mg/dL 6-26 Creatinine 0.9 mg/dL 0.6-1.4 BUN/Creat Ratio 17.8 CALC 8.0-36.0 Calcium 9.5 mg/dL 8.6-10.2 Total Protein 7.1 g/dL 6.4-8.3 Albumin 4.2 g/dL 3.8-5.5 Globulin 2.9 g/dL 2.0-4.8 A/G Ratio 1.4 CALC 0.6-2.3 Alk. Phosphatase 52 U/L 22-95 Alt (SGPT) 32 U/L 7-35 Ast (Sgot) 27 U/L 5-34 Total Bilirubin 0.5 mg/dL 0.2-1.3 GFR Non- >60 ml/min/1.73m^ >=60 GFR >60 ml/min/1.73m^ >=60 Laboratory test 03/08/2016 Vitamin D25 30 30-100 10 finding Laboratory test 01/15/2016 Urine Culture And SEE RESULT , 12 finding Sensitivities BELOW Laboratory test 03/29/2015 Microalb, Random 5.9 mg/L 0.5-37 finding (Fma/CMC/CTX) Hemoglobin A1c (Fma/CMC,CX) 5.6 % 4.1-5.7 Laboratory test finding 03/29/2015 Free T4 0.85 ng/dL 0.75-1.54 TSH 2.56 mIU/L 0.50-6.00 Lipid Profile 03/29/2015 Cholesterol 208 mg/dL High 120-200 Triglycerides 133 mg/dL 30-200 HDL Cholesterol 52 mg/dL 30-70 LDL (Calculated) 129 CALC 0-129 VLDL Cholesterol 27 mg/dL 0-50 HDL Risk Factor 4.0 CALC 0.0-4.4 Laboratory test finding 03/29/2015 Vitamin D25 32 30-100 13 PSA 1.0 ng/mL 0.0-4.0 Comprehensive Metabolic Prof 03/29/2015 Sodium 139 mEq/L 134-149 Potassium 4.7 mEq/L 3.6-5.5 Chloride 102 mEq/L 94-112 Carbon Dioxide 28 mEq/L 21-32 Glucose 120 mg/dL High 70-105 14 BUN 16 mg/dL 6-26 Creatinine 0.9 mg/dL 0.6-1.4 BUN/Creat Ratio 17.8 CALC 8.0-36.0 Calcium 9.2 mg/dL 8.6-10.2 Total Protein 7.0 g/dL 6.4-8.3 Albumin 4.1 g/dL 3.8-5.5 Globulin 2.9 g/dL 2.0-4.8 A/G Ratio 1.4 CALC 0.6-2.3 Alk. Phosphatase 53 U/L 22-95 Alt (SGPT) 21 U/L 7-35 Ast (Sgot) 28 U/L 5-34 Total Bilirubin 0.5 mg/dL 0.2-1.3 Complete Blood Count 03/29/2015 WBC 6.4 x10^3/UL 3.6-9.6 RBC 4.73 x10^6/UL 3.90-5.70 HGB 15.7 g/dL 12.1-17.2 HCT 45 % 36-50 MCV 95.0 fL 82.2-97.4 MCH 33.3 pg 27.6-33.3 MCHC 35.0 g/dL 33.0-35.5 RDW 14.6 % High 11.6-13.7 PLT 306 x10^3/UL 150-400 MPV 6.2 fL Low 7.4-10.4 Gran # 4.3 x10^3/UL 1.5-7.2 Lymph# 1.8 x10^3/UL 0.7-4.9 [place]# 0.3 x10^3/UL 0.1-0.9 Gran % 65.7 % 42.2-75.2 Lymph % 28.3 % 20.5-51.1 [place]% 6.0 % 1.7-9.3 Laboratory test finding 06/21/2014 B Type Natriuretic 29 pg/mL 15 Peptide CBC Auto Diff 06/21/2014 White Blood Count 8.2 10^3/uL 4.8-10.8 Red Blood Count 4.60 10^6/uL 4.0-5.4 Hemoglobin 15.1 g/dL 14.0-18.0 Hematocrit 43 % 42-52 Mean Corpuscular Volume 93 fL 80-94 Mean Corpuscular Hemoglobin 33 pg High 27-31 Mean Corpuscular HGB Conc 36 g/dL 31-36 Red Cell Distribution Width 14 % 10.5-15 Platelet Count 325 10^3/uL 150-450 Mean Platelet Volume 7 um3 Low 7.4-10.4 Abs Neutrophils 5.3 10^3/uL 1.5-7.7 Abs Lymphocytes 2.3 10^3/uL 1.0-4.8 Abs Monocytes 0.5 10^3/uL 0-0.8 Abs Eosinophils 0.1 10^3/uL 0-0.6 Abs Basophils 0 10^3/uL 0-0.2 Abs Nucleated RBC 0 10^3/uL Granulocyte % 64.8 % 38-83 Lymphocyte % 27.4 % 25-47 Monocyte % 6.0 % 1-9 Eosinophil % 1.4 % 0-6 Basophil % 0.4 % 0-2 Nucleated Red Blood Cells % 0 Comp Metabolic Panel 06/21/2014 Sodium 140 mmol/L 133-145 Potassium 4.5 mmol/L 3.5-5.0 16 Chloride 105 mmol/L 101-111 Co2 Carbon Dioxide 29 mmol/L 22-32 Anion Gap 6 mmol/L 2-11 Glucose 133 mg/dL High 70-100 Blood Urea Nitrogen 14 mg/dL 6-24 Creatinine 0.74 mg/dL 0.67-1.17 BUN/Creatinine Ratio 18.9 8-20 Calcium 9.8 mg/dL 8.6-10.3 Total Protein 6.5 g/dL 6.4-8.9 Albumin 4.0 g/dL 3.2-5.2 Globulin 2.5 g/dL 2-4 Albumin/Globulin Ratio 1.6 1-3 Total Bilirubin 0.40 mg/dL 0.2-1.0 Alkaline Phosphatase 67 U/L 34-104 Alt 23 U/L 7-52 Ast 19 U/L 13-39 Egfr Non- 102.8 >60 Egfr 132.3 >60 17 Laboratory test finding 03/19/2014 Hemoglobin A1c (a/[facility] [place],CX) 6.0 % High 4.1-5.7 Ua - Non Micro (a) 03/19/2014 Appearance clear Color yellow Glucose neg Bilirubin neg Ketones neg SP Grav 1.025 Blood neg PH 5.5 Protein neg Urobil 0.2 Nitrite neg Leukocytes ([facility]) neg Complete Blood Count 03/11/2014 WBC 7.4 x10^3/UL 3.6-9.6 RBC 5.00 x10^6/UL 3.90-5.70 HGB 16.4 g/dL 12.1-17.2 HCT 48 % 36-50 MCV 96.0 fL 82.2-97.4 MCH 32.8 pg 27.6-33.3 MCHC 34.2 g/dL 33.0-35.5 RDW 12.9 % 11.6-13.7 PLT 272 x10^3/UL 150-400 MPV 6.6 fL Low 7.4-10.4 Gran # 5.1 x10^3/UL 1.5-7.2 Lymph# 2.0 x10^3/UL 0.7-4.9 [place]# 0.3 x10^3/UL 0.1-0.9 Gran % 67.0 % 42.2-75.2 Lymph % 27.7 % 20.5-51.1 [place]% 5.3 % 1.7-9.3 Laboratory test finding 03/11/2014 TSH 1.91 mIU/L 0.50-6.00 Comprehensive Metabolic Prof 03/11/2014 Sodium 136 mEq/L 134-149 Potassium 5.0 mEq/L 3.6-5.5 Chloride 99 mEq/L 94-112 Carbon Dioxide 29 mEq/L 21-32 Glucose 122 mg/dL High 70-105 18 BUN 19 mg/dL 6-26 Creatinine 1.0 mg/dL 0.6-1.4 BUN/Creat Ratio 19.0 CALC 8.0-36.0 Calcium 9.7 mg/dL 8.6-10.2 Total Protein 7.8 g/dL 6.3-8.1 Albumin 4.5 g/dL 3.8-5.5 Globulin 3.7 g/dL 2.0-4.8 A/G Ratio 1.4 CALC 0.6-2.3 Alk. Phosphatase 65 U/L 22-95 Alt (SGPT) 26 U/L 7-35 Ast (Sgot) 18 U/L 5-34 Total Bilirubin 0.4 mg/dL 0.2-1.3 Laboratory test finding 03/11/2014 PSA 1.4 ng/mL 0.0-4.0 19 Vitamin D25 18 Low 30-100 Laboratory test finding 03/19/2013 PSA 1.30 ng/mL 0.00-4.00 TSH 1.79 mIU/L 0.50-6.00 Ua - Non Micro (Fma) 03/19/2013 Appearance CLEAR Color YELLOW Glucose NEG Bilirubin NEG Ketones NEG SP Grav 1.025 Blood NEG PH 5.5 Protein NEG Urobil 0.2 Nitrite NEG Leukocytes (Fma/CMC/Centrex) NEG Inr/Protime 02/08/2013 Inr 0.92 0.87-0.97 Laboratory test finding 02/08/2013 Activated Partial 29.8 seconds 22.18- 37.18 Thrombo Time Urinalysis 02/08/2013 Urine Color Yellow Urine Appearance Clear Urine Specific [place] 1.025 1.010-1.030 Urine Esterase Negative Negative Urine Nitrate Negative Negative Urine Urobilinogen Negative E.U./dL Negative Urine Protein Negative mg/dL Negative Urine pH 5.5 5-9 Urine Blood Negative Negative Urine Ketones Negative mg/dL Negative Urine Bilirubin Negative Negative Urine Glucose Negative mg/dL Negative CBC Auto Diff 02/08/2013 White Blood Count 8.8 10^3/uL 4.8-10.8 Red Blood Count 4.58 10^6/uL 4.0-5.4 Hemoglobin 14.9 g/dL 14.0-18.0 Hematocrit 43 % 42-52 Mean Corpuscular Volume 94 fL 80-94 Mean Corpuscular Hemoglobin 33 pg High 27-31 Mean Corpuscular HGB Conc 35 g/dL 31-36 Red Cell Distribution Width 14 % 10.5-15 Platelet Count 267 10^3/uL 150-450 Mean Platelet Volume 8 um3 7.4-10.4 Abs Neutrophils 5.3 10^3/uL 1.5-7.7 Abs Lymphocytes 2.6 10^3/uL 1.0-4.8 Abs Monocytes 0.7 10^3/uL 0-0.8 Abs Eosinophils 0.1 10^3/uL 0-0.6 Abs Basophils 0 10^3/uL 0-0.2 Abs Nucleated RBC 0 10^3/uL Granulocyte % 60.5 % 38-83 Lymphocyte % 30.0 % 25-47 Monocyte % 7.9 % 1-9 Eosinophil % 1.3 % 0-6 Basophil % 0.3 % 0-2 Nucleated Red Blood Cells % 0 Comp Metabolic Panel 02/08/2013 Sodium 141 mmol/L 133-145 Potassium 4.0 mmol/L 3.5-5.0 Chloride 107 mmol/L 101-111 Co2 Carbon Dioxide 28.0 mmol/L 22-32 Anion Gap 6.0 mmol/L 2-11 Glucose 93 mg/dL 70-100 Blood Urea Nitrogen 16 mg/dL 6-24 Creatinine 0.80 mg/dL 0.50-1.40 BUN/Creatinine Ratio 20.0 8-20 Calcium 9.3 mg/dL 8.1-9.9 Total Protein 7.0 g/dL 6.2-8.1 Albumin 3.7 g/dL 3.2-5.2 Globulin 3.3 g/dL 2-4 Albumin/Globulin Ratio 1.1 1-3 Total Bilirubin 0.7 mg/dL 0.4-1.5 Alkaline Phosphatase 56 U/L 30-110 Alt 23 U/L 14-54 Ast 29 U/L 12-42 Egfr Non- 94.2 >60 Egfr 121.2 >60 20 Laboratory test finding 02/08/2013 Troponin I 0 ng/mL 0-0.06 21 CBC Electronic (a) 05/23/2012 WBC 9.8 High 3.6-9.6 22 RBC 4.87 3.90-5.70 Hemoglobin (Fma/CMC/CTX) 15.6 g/dL 12.1 - 17.2 Hematocrit (Fma/CMC/CTX) 46.7 % 36.1 - 50.3 Platelets 278 10^3/ul 150-400 Lymph% 25.4 20.5-51.1 Mixed% 3.3 Neutrophils % 71.3 Mean Corpuscular Vol 96 82.2-97.4 Mean Corpuscular Hemoglobin 32.0 27.6-33.3 Mean Corpuscular Hemo Concen 33.4 32.0-36.0 RDW 12.6 11.6-13.7 Mean Platelet Volume 6.3 Low 6.5-11.0 Ua - Non Micro (Fma) 05/23/2012 Appearance yellow Color clear Glucose neg Bilirubin neg Ketones neg SP Grav 1.020 Blood neg PH 5.5 Protein neg Urobil 0.2 Nitrite neg Leukocytes (Fma/CMC/Centrex) neg Comprehensive Metabolic Prof 05/23/2012 Albumin 4.3 g/dL 3.8-5.5 Alk. Phos. 60 U/L 22-95 Alt (SGPT) 20 U/L 10-40 Ast (Sgot) 22 U/L 5-34 BUN 17 mg/dL 6-26 Calcium 9.6 mg/dL 8.6-10.2 Chloride 98 mEq/L 94-112 Creatinine 0.9 mg/dL 0.6-1.4 Carbon Dioxide 28 mEq/L 21-32 Glucose 97 mg/dL 70-105 Sodium 137 mEq/L 134-149 Total Bilirubin 0.7 mg/dL 0.2-1.3 Total Protein 6.9 g/dL 6.3-8.1 Potassium 3.9 mEq/L 3.6-5.5 Globulin 2.6 g/dL 2.0-4.8 A/G Ratio 1.7 Calc 0.6-2.2 BUN/Creat Ratio 17.7 Calc 8.0-36.0 Laboratory test finding 05/23/2012 Uric Acid 8.3 mg/dL 2.5-9.2 PSA 1.40 ng/mL 0.00-4.00 Laboratory test finding 11/30/2011 Uric Acid 8.1 mg/dL 2.5-9.2 Surgical Pathology 05/09/2011 Surgical Pathology 23 <SEE NOTE> Comprehensive Metabolic 03/29/2011 Albumin 4.4 g/dL 3.8-5.5 Prof Alk. Jacobo. 66 U/L 22-95 Alt (SGPT) 24 U/L 10-40 Ast (Sgot) 21 U/L 5-34 BUN 19 mg/dL 6-26 Calcium 9.8 mg/dL 8.6-10.2 Chloride 104 mEq/L 94-112 Creatinine 0.9 mg/dL 0.6-1.4 Carbon Dioxide 26 mEq/L 21-32 Glucose 93 mg/dL 70-105 Sodium 142 mEq/L 134-149 Total Bilirubin 0.6 mg/dL 0.2-1.3 Total Protein 6.8 g/dL 6.3-8.1 Potassium 4.3 mEq/L 3.6-5.5 Globulin 2.5 g/dL 2.0-4.8 A/G Ratio 1.8 Calc 0.6-2.2 BUN/Creat Ratio 22.5 Calc 8.0-36.0 Lipid Profile 03/29/2011 Cholesterol 197 mg/dL 120-200 HDL 51 mg/dL 30-70 Triglycerides 147 mg/dL 30-200 HDL Risk Factor 3.9 CALC 0.0-4.0 LDL (Calculated) 117 CALC 0-129 VLDL (Calculated) 29 mg/dL 0-50 Laboratory test finding 03/29/2011 PSA 0.90 ng/mL 0.00-4.00 Ua - Non Micro (Fma) 03/29/2011 Appearance CLEAR Color YELLOW Glucose, Urine (Fma/CMC/CTX) NEG Bilirubin NEG Ketones NEG SP Grav 1.020 Blood NEG PH 5.0 Protein NEG Urobil 0.2 Nitrite NEG Leukocytes (Fma/CMC/Centrex) NEG 1 RESULTS VERIFIED BY REPEAT ANALYSIS 2 NON-FASTING 3 RESULTS VERIFIED BY REPEAT ANALYSIS 4 [facility] Severe Sepsis and Septic Shock Management Bundle Measure requires all lactic acids initially measuring >2.0 mmol/L be repeated. 5 Acute inflammation: >10.00 6 Because ethnic data is not always readily available, this report includes an eGFR for both -Americans and non- Americans. The National Kidney Disease Education Program (NKDEP) does not endorse the use of the MDRD equation for patients that are not between the ages of 18 and 70, are , have extremes of body size, muscle mass, or nutritional status, or are non- or non-. According to the National Kidney Foundation, irrespective of diagnosis, the stage of the disease is based on the level of kidney function: Stage Description GFR(mL/min/1.73 m(2)) 1 Kidney damage with normal or decreased GFR 90 2 Kidney damage with mild decrease in GFR 60-89 3 Moderate decrease in GFR 30-59 4 Severe decrease in GFR 15-29 5 Kidney failure <15 (or dialysis) 7 >100 to <200 pg/mL: likely compensated congestive heart failure (CHF) 200 to 400 pg/mL: likely moderate CHF >400 pg/mL: likely moderate to severe CHF 8 A courtesy copy of this report has been sent to [phone]. 9 Serum levels of PSA measured using the [employer] DXI Hybritech immunoassay should not be interpreted as absolute evidence of the presence or absence of disease. The PSA value should be used in conjunction with other pertinent clinical diagnostic procedures. A PSA value in the range of 0.1 to 0.6 ng/ml is indeterminate if being used as an indicator of recurrent or residual disease. The values obtained with different assay methods or kits cannot be used interchangeably. [address] FASTING pleasae copy to Dr. Yumiko Vargas, [facility]. 11 [id number] SEE RESULT BELOW Name: DENY BUNDY : [address]: Teagan Rutherford MD Acct: [id number] Unit: [id number] AGE: 80 Location: [facility] Re01/15/16 SEX: M Status: DEP ER SPEC: [id number] GIOVANY: 01/15/16-[address] [facility] [address]: Teagan Rutherford MD REQ: [id number] RECD: 01/16/16-1254 STATUS: JOSE QUEEN DR: Marianela Botello MD _ SOURCE: URINE SPDESC: ORDERED: Urine Culture COMMENTS: [id number] Procedure Result Reported Site Urine Culture Final 01/18/16- 0821 ML Organism 1 ESCHERICHIA COLI [place] Count 10-25,000 (Moderate) CFU/ML 1. ESCHERICHIA COLI M.I.C. RX --------- ------ Ampicillin <=2 S Cefazolin <=4 S Cefepime <=1 S Ceftriaxone <=1 S Ciprofloxacin <=0.25 S Gentamicin <=1 S Levofloxacin <=0.12 S Meropenem <=0.25 S Nitrofurantoin <=16 S Tetracycline <=1 S Pipercillin/Tazobactam <=4 S Trimethoprim/Sulfamethoxazole <=20 S Amoxicillin/Clavulanic Acid <=2 S Aztreonam <=1 S Contact the Microbiology Department for any additional antibiotic reporting. * ML - MAIN LAB ([facility]) . END OF REPORT * ML=Testing performed at Main Lab DEPARTMENT OF PATHOLOGY, [address] [place] [address] Elliot Carrero M.D. Director [facility] # [id number] 13 FASTING 14 consistent w/ previous results 15 >100 to <200 pg/mL: likely compensated congestive heart failure (CHF) 200 to 400 pg/mL: likely moderate CHF >400 pg/mL: likely moderate to severe CHF [place] [facility] 16 Potassium reference range changed effective 06/20/14 17 Because ethnic data is not always readily available, this report includes an eGFR for both -Americans and non- Americans. The National Kidney Disease Education Program (NKDEP) does not endorse the use of the MDRD equation for patients that are not between the ages of 18 and 70, are , have extremes of body size, muscle mass, or nutritional status, or are non- or non-. According to the National Kidney Foundation, irrespective of diagnosis, the stage of the disease is based on the level of kidney function: Stage Description GFR(mL/min/1.73 m(2)) 1 Kidney damage with normal or decreased GFR 90 2 Kidney damage with mild decrease in GFR 60-89 3 Moderate decrease in GFR 30-59 4 Severe decrease in GFR 15-29 5 Kidney failure <15 (or dialysis) 18 RESULTS VERIFIED BY REPEAT ANALYSIS 19 FASTING 20 Because ethnic data is not always readily available, this report includes an eGFR for both -Americans and non- Americans. The National Kidney Disease Education Program (NKDEP) does not endorse the use of the MDRD equation for patients that are not between the ages of 18 and 70, are , have extremes of body size, muscle mass, or nutritional status, or are non- or non-. According to the National Kidney Foundation, irrespective of diagnosis, the stage of the disease is based on the level of kidney function: Stage Description GFR(mL/min/1.73 m(2)) 1 Kidney damage with normal or decreased GFR 90 2 Kidney damage with mild decrease in GFR 60-89 3 Moderate decrease in GFR 30-59 4 Severe decrease in GFR 15-29 5 Kidney failure <15 (or dialysis) 21 Reference Range and Interpretation: TnI (ng/mL) Interpretation Less Than 0.06 ng/mL Not supportive of diagnosis of RI 0.06 - 0.50 ng/mL Indeterminate: suggest serial studies if clinically indicated. Greater than 0.5 ng/mL Consistent with diagnosis of RI 22 results rechecked 23 ---- RUN DATE: 05/11/11 [facility] NMI LIVE PAGE 1 RUN TIME: 1557 Specimen Inquiry RUN USER: INTERFACE -- Name: DENY BUNDY Status: REG REF Re05/09/11 Age/Sex: 75/M Unit#: [id number] Location: [address] [place] [address]. : 39 -- Specimen: [id number] SOUT Spec Date: 05/09/[address]: Rommel oliver MD Spec Type: SURGICAL P Received: 05/10/11 Copies to: Marianela lowry MD SPECIMEN 1) ILEOCECAL POLYP 2) TWO MID RIGHT COLON POLYPS 3) HEPATIC FLEXURE POLYP HISTORY POST-OP DIAGNOSIS: Colonoscopy to cecum. Advanced pancolonic diverticulos is. Right colon polyps. CLINICAL INFORMATION: History of colon polyps. GROSS DESCRIPTION 1) The specimen is received in formalin labelled Deny Bundy, Ileocecal Polyp, and consists of two fragments of white tissue each measuring 0.1 x 0.1 x 0.1 cm. Submitted entirely, one cassette labelled 1. 2) The specimen is received in formalin labelled Deny Bundy, Mid Right Colon Polyps, and consists of several fragments of yellow tissue measuring in aggregate 0.6 x 0.6 x 0.3 cm. Submitted entirely, one cassette labelled 2. 3) The specimen is received in formalin labelled Deny Bundy, Hepatic Flexure Polyp, and consists of one fragment of yellow tissue measuring 0.4 x 0.2 x 0.2 cm. Submitted entirely, one cassette labelled 3. DIAGNOSIS 1) Ileocecal polyp, biopsy: A. Tubular adenoma. B. No high grade dysplasia or malignancy. 2) Mid right colon, polyps, biopsy: A. Fragments of tubular adenoma (3). B. No high grade dysplasia or malignancy. 3) Hepatic flexure, polyp, biopsy: Hyperplastic polyp. Signed Electronically by: PURA GILLETTE 05/11/11 1556 -- DEPARTMENT OF PATHOLOGY, [address] [place] [address] [facility] Permit #[id number] Elliot Carrero M.D. Director Pura Gillette M.D. City Assessor Dir sonido -- Procedures Date CPT Code Description Status Comment 05/12/2018 75812 Injection Subcutaneous Or Completed Intramuscular 12/17/2017 33432 Injection Subcutaneous Or Completed Intramuscular 11/22/2017 08792 Remove Impact Cerumen Irrigati Completed 10/25/2017 20758 Pulse Oximetry Completed 10/25/2017 50939 Nebulizer Treatment Completed 07/25/2017 57629 Injection Subcutaneous Or Completed Intramuscular 06/25/2017 93796 Injection Subcutaneous Or Completed Intramuscular 04/25/2017 99004 Injection Subcutaneous Or Completed Intramuscular 03/18/2017 36614 Electrocardiogram Complete Completed 04/07/2015 41242 Remove Impacted Cerumen Completed 11/01/2014 76762 Pulse Oximetry Completed 07/20/2014 Colonoscopy Completed No polyps 2013. Tubular adenomas in the past. [place] colonic diverticulosis. adenomas in [place]. No routine follow up planned. Will reassess in 2023. 03/19/2014 42659 Finger Or Heel Stick Completed 03/19/2013 58857 Vision Test- screening test of Completed visual acuity, quantitative, bila 05/09/2011 Colonoscopy Completed Encounters Type Date Location Provider CPT E/M Dx Office Visit 05/12/2018 11:10a Main Office Jaime Little M.D. 14613 E11.9 G31.84 D51.8 Office Visit 01/31/2018 11:20a [facility] Marianela Botello M.D. 60555 E11.9 G31.84 Office Visit 12/17/2017 10:40a Main Office Marianela Botello M.D. 35656 R41.1 D51.8 E11.9 Office Visit 11/22/2017 8:45a [facility] Office Melany Aguilar, [facility] 60504 R73.01 E78.1 E66.3 H61.23 Office Visit 10/25/2017 2:00p [facility] Office Melany Aguilar, [facility] 71051 R05 R06.2 E78.1 R73.01 D51.8 Office Visit 04/25/2017 8:30a [facility] Office Marianela Botello M.D. 20846 G31.84 D51.8 R73.01 E78.1 Office Visit 04/09/2017 1:00p [facility] Office Joshua Chaidez-C 40484 G31.84 Office Visit 03/26/2017 2:00p [facility] Office Marianela Botello M.D. 22143 Z00.01 E66.3 F32.9 N40.0 R73.01 Office Visit 03/18/2017 11:00a Main Office Marianela Botello M.D. 26754 E66.3 R06.02 E11.9 G31.84 M54.5 E78.1 Office Visit 03/08/2016 10:00a [facility] Marianela Botello M.D. 61160 Z00.00 R73.01 E78.4 E55.9 M54.5 Office Visit 01/19/2016 9:20a [facility] Office Marianela Botello M.D. 26598 M54.5 E55.9 E66.3 N39.0 Office Visit 05/10/2015 11:20a [facility] Office Marianela Botello M.D. 53297 311 995.27 268.9 Office Visit 04/07/2015 9:15a [facility] Zoe Hanna, [employer]NEY 84407 780.4 380.4 Office Visit 03/29/2015 9:40a [facility] Office Marianela Botello M.D. 74776 311 780.4 278.02 268.9 600.00 790.21 Office Visit 11/01/2014 3:30p Main Office Matilda Fam STORE PRODUCT DEMONSTRATOR 94735 466.0 Office Visit 07/08/2014 3:40p [facility] Office Marianela Botello M.D. 65486 311 278.02 v03.82 Office Visit 05/20/2014 3:20p [facility] Office Marianela Botello M.D. 64074 380.4 311 278.02 Office Visit 05/10/2014 9:00a [facility] Office Jasmyn Thomas M.D. 86498 380.4 Office Visit 03/19/2014 2:00p [facility] Office Marianela Botello M.D. 87700 V70.0 278.02 311 600.00 696.1 608.89 268.9 790.6 Office Visit 02/25/2014 2:40p [facility] Office Marianela Botello M.D. 85895 724.2 278.02 Office Visit 03/19/2013 9:00a [facility] Office Marianela Botello M.D. 01731 780.4 278.02 600.00 311 696.1 V72.0 Office Visit 02/09/2013 2:30p [facility] Office Melany Jeff, MIKEL 89003 780.4 Office Visit 05/23/2012 1:20p [facility] Office Marianela Botello M.D. 67028 V70.0 278.02 311 719.47 600.00 696.1 782.9 Office Visit 11/30/2011 9:40a [facility] Marianela Botello M.D. 54924 788.43 311 719.47 380.4 Office Visit 04/04/2011 3:00p [facility] Melany Murdock, 10796 448.1 M.D. Office Visit 03/29/2011 2:00p [facility] Marianela Botello M.D. 74322 V76.44 V70.0 600.00 311 278.02 724.2 782.9 v06.5 Office Visit 11/30/2010 2:00p [facility] Office Marianela Botello M.D. 22117 311 V70.0 Plan of Care 06/12/2018 - Marianela Botello M.D.D51.8 Other vitamin B12 deficiency anemiasNew Labs:B12 (Fma/CMC/Centrex)Comments:you need to get a B12 shot every ofuxhE76.9 Type 2 diabetes mellitus without derngnfrzlxjzU35.031 Cellulitis of right toeNew Labs:Uric Acid, SerumComments:getting better. cellulitis vs. gout. Don't think you need an antibiotic today. if it gets worse over the week , you might need an antibiotic. soak in warm epsom salt soaks twice a day for 20 minutes.Follow up:1 week recheck toe.E66.3 OverweightComments:You stated that you will walk 20 minutes a day. 5/7 days. keep a record of your exercise and bring it in.You will eat better.Follow up:1 month.AllComments:~B_~U_ Medication Management~b_~u_ Patient Understands medications he's taking? Yes No Are there Barriers to Adherence? Yes No Has the patient been asked about herbal supplements and therapies, and OTC meds? Yes No
[2018-06-17 14:46] VITALS: BP 146/50
--- NOTE | 2018-06-17 14:49 | UC ---
Minor Trauma HPI - HPI Summary HPI Summary: Pt presents to with SO. Pt was walking dog approx 1130am today. The dog chased a chicken and the pt fell the ground landing on his right side and striking head into side of car. No LOC. No blood HEENT. Patient was able to get up on his own and insight. Patient without any pain in his legs. Patient reports pain on his anterior chest wall across his right anterior ribs and his right scapula. Patient also with discomfort in the right shoulder. Patient is not on any blood thinners. Patient will take anything for pain. Patient without any abdominal pain. No nausea vomiting. No headache or vision changes. No other complaints. Patient without any open wounds. Patient medications reviewed this visit. Of note, patient does have some difficulties with memory. - History of Current Complaint Chief Complaint: UCTrauma Stated Complaint: RIB AREA INJURY Time Seen by Provider: 06/17/18 14:48 Hx Obtained From: Patient, Family/Chair Car Attendant Hx From Patient Unobtainable Due To: Dementia - mild memory impairment Severity Initially: Moderate Severity Currently: Moderate Pain Intensity: 7 Pain Scale Used: 0-10 Numeric Mechanism Of Injury: Blunt Trauma Aggravating Factor(s): Movement - Allergies/Home Medications Allergies/Adverse Reactions: Allergies Allergy/AdvReac Type Severity Reaction Status Date / Time No Known Allergies Allergy Verified 06/17/18 14:35 Home Medications: Home Medications Donepezil TAB* [Aricept 5 MG TAB*] 5 mg PO DAILY 06/17/18 [History Confirmed ] Memantine TAB* [Namenda TAB*] 5 mg PO DAILY 06/17/18 [History Confirmed 06/17/18 ] PMH/Surg Hx/FS Hx/Imm Hx Previously Healthy: Yes Other History Of: Negative For: HIV, Hepatitis B, Hepatitis C, Anticoagulant Therapy - Surgical History Surgical History: Yes Surgery Procedure, Year, and Place: tonsils and adenoids; inguinal hernia - Family History Known Family History: Positive: Diabetes Negative: Cardiac Disease, Hypertension - Social History Lives: With Family Alcohol Use: None Substance Use Type: None Smoking Status (MU): Never Smoked Tobacco Have You Smoked in the Last Year: No Review of Systems Constitutional: Negative Skin: Negative Respiratory: Other - pain anterior ribs with deep inspiratin Gastrointestinal: Negative Genitourinary: Negative Motor: Other - right shoulder, anterior ribs, scapula Neurological: Negative All Other Systems Reviewed And Are Negative: Yes Physical Exam - Summary Physical Exam Summary: Vital Signs Reviewed: Yes A+Ox3, no distress pleasant Eyes: Conjunctiva Clear, JJ. EOM intact and full ENT: Hearing grossly normal TM x 2 clear, no hemotympanium b/l, no septal hematoma b/l, no blood oropharynx, mmoist, uvula midline, no exudate, no erythema Neck: Positive: Supple Respiratory: Positive: CTA throughout no w/r Pt with discomfort with palpation right anterior chest wall under breast. No pain along clavicles. no crepitus Cardiovascular: RRR nl s1, s2 no m/r CBT <2 sec, 2+ radial b/l abd soft + BS nt/nd no guarding, no distension Musculoskeletal Exam: ambulatory without difficulty or assistance. Pt with discomfort right anterior shoulder Pt reports pain along anterior right ribs with ROM shoulder no crepitus, no deformity + flex/ext elbow, + pronate/ supinat + flex/ext wrist Neurological: Positive: Alert, + sensation throughout 5/5 grasp + thumb up, a ok, finger spread, finger cross Psychological: Positive: Normal Response To Family Skin: Positive: no rash, no ecchymosis, no abraisons, contusions Triage Information Reviewed: Yes Vital Signs: Initial Vital Signs Temp 97.7 F 06/17/18 14:38 Pulse 60 06/17/18 14:38 Resp 20 06/17/18 14:38 BP 146/50 06/17/18 14:38 Pulse Ox 97 06/17/18 14:38 Diagnostics - Radiology No standard instances Radiology Interpretation Completed By: Radiologist - Patient Name: DENY BUNDY Medical Record#: [id number] Ordering Physician: Marcelina Emery MD Acct.#: [id number] : 1935 Age: 82 Sex: M Location: [facility] [place] Exam Date: 06/17/18 1501 ADM Status: REG ER Order Information: CT BRAIN WO Accession Number: [id number] CPT : 28775 HISTORY: fall, stuck head,chest COMPARISONS: April 18, 2017 TECHNIQUE: Multiple contiguous axial CT scans were obtained of the head without intravenous contrast. FINDINGS: HEMORRHAGE/INFARCT: There is no hemorrhage or acute infarct. MASSES/SHIFT: There is no mass or shift. EXTRA-AXIAL SPACES: There are no extra-axial fluid collections. SULCI AND VENTRICLES: There is mild diffuse and proportional enlargement of the sulci and ventricles. CEREBRUM: There are no focal parenchymal abnormalities. BRAINSTEM: There are no focal parenchymal abnormalities. CEREBELLUM: There are no focal parenchymal abnormalities. VESSELS: There is calcification of the cavernous segments of the internal carotid arteries bilaterally and of the distal vertebral arteries bilaterally. PARANASAL SINUSES: The paranasal sinuses are clear. ORBITS: The orbits are unremarkable. BONES AND SOFT TISSUE: No bone or soft tissue abnormalities are noted. OTHER: None IMPRESSION: NO ACUTE INTRACRANIAL PATHOLOGY. < Electronically signed by Yaw Burden MD in OV> 06/17/181537 Dictated By: Yaw Burden MD Dictated Date/Time: 06/17/181537 Transcribed Date/ Time: 06/17/181535 Copy to: CC:Marcelina Emery MD; Marianela Botello MD Imaging - [facility] Imaging - [facility] This report is only to be considered final once signed by the Provider(s) as displayed in the "< Electronically Signed by >" field (s). Absence of a signature indicates the report is in a draft status and still needs to be finalized. In the event this document was created by someone other than the signing Provider, the individual initiating the document will be listed in the "Entered by:" or "Dictated by:" walker. 1 of 2 Patient Name: DENY BUNDY Medical Record#: [id number] Ordering Physician: Marcelina Emery MD Acct.#: [id number] : 1935 Age: 82 Sex: M Location: [facility] [place] Exam Date: 06/17/18 1502 ADM Status: REG ER Order Information: RIBS RT UNI W/PA CH MIN 3 VWS Accession Number: [id number] CPT: 55907 Indication: Right rib injury. 3 views of the right ribs demonstrate likely nondisplaced fracture of the right seventh rib anteriorly. There may also be a nondisplaced fracture of the right eighth rib.Remainder of the ribs are unremarkable. Dual energy PA views demonstrates no pneumothorax. No mediastinal shift is noted. The heart is of normal size. IMPRESSION: Likely nondisplaced fractures of the right seventh and eighth rib anteriorly without evidence of pneumothorax. <Electronically signed by Tammy Brown MD in OV> 1534 Dictated By: Tammy Brown MD Dictated Date/Time: 06/17/181534 Transcribed Date/Time: 06/17/181532 Copy to: CC:Marcelina Emery MD; Marianela Botello MD [facility] [address] [place] [address] ph ([phone]) ph ([phone]) ph ([phone]) This report is only to be considered final once signed by the Provider(s) as displayed in the "< Electronically Signed by >" field (s). Absence of a signature indicates the report is in a draft status and still needs to be finalized. In the event this document was created by someone other than the signing Provider, the individual initiating the document will be listed in the "Entered by:" or "Dictated by:" walker. 1 of 1 Patient Name: DENY BUNDY Medical Record#: [id number] Ordering Physician: Marcelina Emery MD Acct.#: [id number] : 1935 Age: 82 Sex: M Location: [facility] Exam Date: 06/17/18 1502 ADM Status: REG ER Order Information : SHOULDER RIGHT 2+ VWS Accession Number: [id number] CPT: 11449 Indication: Right scapular pain and rib pain. 4 views of the right shoulder demonstrates AC joint arthritis. Degenerative changes of the glenohumeral joint is noted. No fracture is noted. IMPRESSION: Degenerative changes of the right glenohumeral joint. AC joint arthritis is noted. No fracture is identified. ___ <Electronically signed by Tammy Brown MD in OV> 06/17/18 1550 Dictated By: Tammy Brown MD Dictated Date/Time: 06/17/18 1550 Transcribed Date/Time: 06/17/18 1548 Copy to: CC:Marcelina Emery MD; Marianela Botello MD Imaging - [facility] Imaging - [place] [facility] [address] [address] ph ([phone]) ph ([phone]) ph ([phone]) This report is only to be considered final once signed by the Provider(s) as displayed in the "<Electronically Signed by >" field (s). Absence of a signature indicates the report is in a draft status and still needs to be finalized. In the event this document was created by someone other than the signing Provider, the individual initiating the document will be listed in the "Entered by:" or "Dictated by:" walkre. 1 of 1 Re-Evaluation - Re-Evaluation First Eval Re-Evaluation Time: 16:03 Change: Improved Comment: Reviewed imaging studies with patient. We'll place in her right shoulder sling for comfort. Encourage patient to remove the sling for range of motion activities. Also will write for incentive spirometer. Patient has appointment with his PCP scheduled on . Encouraged deep slow breaths using over splint. Motrin for pain. Ice. Return precautions discussed. Patient and spouse comfortable and agreement with plan. Minor Trauma Course/Dx - Course Course Of Treatment: Patient presents to urgent care reporting a fall around 11: 30 this morning. Patient was pulled down by his dog. Patient states he hit his head on a car and landed on his right side. Patient was hit on his right anterior ribs, right shoulder. Patient is not anticoagulant. Patient hasn't taken any analgesia. Patient with discomfort right anterior ribs with palpation. Patient's exam is otherwise not concerning. We'll give patient some Tylenol and ice. We'll check a head CT as well as shoulder and chest x- ray results. Patient's significant other present in agreement with plan. - Differential Dx/Diagnosis Provider Diagnoses: rib fractures, shoulder contusion Discharge - Sign-Out/Discharge Documenting (check all that apply): Patient Departure All imaging exams completed and their final reports reviewed: Yes - Discharge Plan Condition: Stable Disposition: HOME Patient Education Materials: Rib Fracture (ED), Shoulder Pain (ED) Referrals: Marianela Botello MD [Primary Care Provider] - ( as scheduled) Additional Instructions: - Okay to alternate ibuprofen (Advil, Motrin) and tylenol every 3 hours for pain - apply ice (wrapped in a towel)20 minutes at a time, 2-3 times a day - Anticipate increased pain over the next 1-2 days, this is normal after a a fall - Wear sling for comfort and support- take your arm out of your sling 2-3 times a day - slowly bend/straighten your elbow and make small circles with your shoulder to precent stiffness - Use incentive spirometer to assist in taking deep breaths several times a day. Okay to hold a pillow against your ribs to support them and help with pain - Keep your appointment as scheduled with your primary care provider on evening. Contact your doctor or return with questions or concerns - Billing Disposition and Condition Condition: STABLE Disposition: Home
[2018-06-17] MEDS ORDERED: Acetaminophen TAB* 325 MG PO ONE (15:00)
--- NOTE | 2018-06-17 15:39 | RAD ---
Indication: Right rib injury. 3 views of the right ribs demonstrate likely nondisplaced fracture of the right seventh rib anteriorly. There may also be a nondisplaced fracture of the right eighth rib.Remainder of the ribs are unremarkable. Dual energy PA views demonstrates no pneumothorax. No mediastinal shift is noted. The heart is of normal size. IMPRESSION: Likely nondisplaced fractures of the right seventh and eighth rib anteriorly without evidence of pneumothorax.
--- NOTE | 2018-06-17 15:41 | RAD ---
HISTORY: fall, stuck head,chest COMPARISONS: April 18, 2017 TECHNIQUE: Multiple contiguous axial CT scans were obtained of the head without intravenous contrast. FINDINGS: HEMORRHAGE/INFARCT: There is no hemorrhage or acute infarct. MASSES/SHIFT: There is no mass or shift. EXTRA-AXIAL SPACES: There are no extra-axial fluid collections. SULCI AND VENTRICLES: There is mild diffuse and proportional enlargement of the sulci and ventricles. CEREBRUM: There are no focal parenchymal abnormalities. BRAINSTEM: There are no focal parenchymal abnormalities. CEREBELLUM: There are no focal parenchymal abnormalities. VESSELS: There is calcification of the cavernous segments of the internal carotid arteries bilaterally and of the distal vertebral arteries bilaterally. PARANASAL SINUSES: The paranasal sinuses are clear. ORBITS: The orbits are unremarkable. BONES AND SOFT TISSUE: No bone or soft tissue abnormalities are noted. OTHER: None IMPRESSION: NO ACUTE INTRACRANIAL PATHOLOGY.
--- NOTE | 2018-06-17 15:53 | RAD ---
Indication: Right scapular pain and rib pain. 4 views of the right shoulder demonstrates AC joint arthritis. Degenerative changes of the glenohumeral joint is noted. No fracture is noted. IMPRESSION: Degenerative changes of the right glenohumeral joint. AC joint arthritis is noted. No fracture is identified.
== END 2018-06-17 16:20 | disposition home or self-care (01) ==
LOC: UCEAST 14:22
DX: S22.41XA Multiple fractures of ribs, right side, initial encounter for closed fracture (principal); S40.011A Contusion of right shoulder, initial encounter; W19.XXXA Unspecified fall, initial encounter; W22.8XXA Striking against or struck by other objects, initial encounter; Y92.9 Unspecified place or not applicable
CPT/HCPCS: 70450; 99213; A9270-GY; G0463

== ENCOUNTER 2018-08-02 12:48 | Emergency (ER) | payer MEDICARE ==
--- OUTSIDE RECORDS SUMMARY | 2018-08-02 12:53 | XMS REPORT | Continuity of Care Document ---
:1935 External Reference #:[id number] Author Name Krish Hamilton Care Team Providers Name Role Phone Marianela Botello MD Primary Care Physician Unavailable Payers Type Date Identification Numbers Payment Provider Subscriber Effective: 2002 Policy Number: [id number] Medicare Antonio Taveras PayID: [id number] [address] [place] [address] Effective: 2013 Policy Number: [facility] Antonio Taveras [id number] PayID: [id number] [address] [place] [address] Advance Directives Description No Information Available Problems Date Description Provider Status Onset: 02/10/2016 Lumbar radiculopathy Isaiah Gage M.D. 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 Active Onset: 06/17/2017 Hypersomnia Lucas Chao M.D. Active Onset: 07/18/2018 Knee joint effusion Mable Guzman MD Active Onset: 07/18/2018 Contusion of knee Mable Guzman MD Active Family History Date Family Member(s) Problem(s) Comments General Diabetes General Cancer Mother Cancer Social History Type Date Description Comments Sex Unknown Lives With Spouse Occupation Retired Occupation Worked as a pressman Hand Dominance Right-handed ETOH Use Denies alcohol use special occasion, 2-3 x year Tobacco Use Start: Unknown End: Patient is a former smoked in early Unknown smoker 20's for a short period Recreational Drug Use Denies Drug Use Smoking Status Reviewed: 07/18/18 Patient is a former smoked in early smoker 20's for a short period Exercise Type/Frequency Does not exercise Allergies, Adverse Reactions, Alerts Description No Known Drug Allergies Medications Medication Date Status Form Strength Qnty SIG Indications Ordering Provider Memantine HCL 12/20/ Active Tablets 10mg 60tab 1 tab by Isaiah Champagne 2018 s mouth Paty, twice a M.D. day.. Donepezil HCL 07/18/ Active Tablets 10mg 30tab take 1 R41.1 Lucas 2016 s pill by Derrek Chao mouth in in the morning Citalopram / Active Tablets 40mg 1 by Unknown Hydrobromide 0000 mouth every day Aspir-Low / Active Tablets DR 81mg 1 by Unknown 0000 mouth every day Finasteride / Active Tablets 5mg 1 by Unknown 0000 mouth every day Vitamin B-12 / Active Liquid 1000mcg/15 inject Unknown 0000 ML 1000 mcg every month for 3 months... cant remember last injection s.. Vitamin D / Active Capsules 2000Unit 1 by Unknown 0000 mouth every day Memantine HCL 12/19/ Hx Tablets 5mg 120ta 1 by Lucas 2017 - bs mouth in Derrek Chao 05/ am for 1 2017 week, then 1 twice a day for a week, the 1 in am and 2 in pm for a week then 2 twice a day Vitamin D / Hx Capsules [id number] 1 cap by Unknown (Ergocalcifero 0000 - mouth per l) week x 8 2016 weeks Tamsulosin HCL / Hx Capsules 0.4mg 1 by Unknown 0000 - mouth 03/25/ every day 2016 Bupropion HCL / Hx Tablets ER 100mg take 1 Unknown ER (SR) 0000 - 12HR tablet by mouth 2016 every morning Citalopram / Hx Tablets 10mg 1 by Unknown Hydrobromide 0000 - mouth 03/20/ every day 2016 Medications Administered in Office Medication Date Status Form Strength Qnty SIG Indications Ordering Provider Technetium TC Administered Injection Ica Nuclear 99M 017 Schedule Tetrofosmin, Per Unit Dose Up To 40 Millicuries Inj, Administered Injection Kelvin Frances, 017 DO Bao 0.1 MG FACC Technetium TC Administered Injection Kelvin S. 99M 017 DO Bao Tetrofosmin, FACC Per Unit Dose Up To 40 Millicuries Depomedrol Administered Injection Tomas 40MG Pili Washburn M.D. Immunizations Description No Information Available Vital Signs Date Vital Result Comment 07/18/2018 10:47am Height 66 inches 5'6" Weight 257.00 lb Heart Rate 64 /min BP Systolic 138 mmHg BP Diastolic 64 mmHg Body Temperature 97.7 F Pain Level 8 BMI (Body Mass Index) 41.5 kg/m2 05/12/2018 1:48pm Height 66 inches 5'6" Weight 255.00 lb clothed.. Heart Rate 68 /min BP Systolic 126 mmHg BP Diastolic 62 mmHg Respiratory Rate 16 /min BMI (Body Mass Index) 41.2 kg/m2 12/09/2017 8:09am Height 66 inches 5'6" Weight 256.00 lb Heart Rate 60 /min BP Systolic Sitting 138 mmHg BP Diastolic Sitting 66 mmHg Respiratory Rate 16 /min BMI (Body Mass Index) 41.3 kg/m2 07/18/2017 4:00pm Height 66 inches 5'6" Weight 250.00 lb Heart Rate 72 /min BP Systolic Sitting 140 mmHg reg size cuff BP Diastolic Sitting 76 mmHg reg size cuff Respiratory Rate 16 /min BMI (Body Mass Index) 40.3 kg/m2 06/17/2017 2:40pm Height 66 inches 5'6" Weight 250.00 lb Heart Rate 64 /min BP Systolic 130 mmHg BP Diastolic 64 mmHg Respiratory Rate 14 /min BMI (Body Mass Index) 40.3 kg/m2 03/12/2016 11:35am Height 66 inches 5'6" Weight 245.00 lb Heart Rate 62 /min BP Systolic Sitting 160 mmHg BP Diastolic Sitting 80 mmHg Pain Level 2 BMI (Body Mass Index) 39.5 kg/m2 02/10/2016 8:55am Height 66 inches 5'6" Weight 245.00 lb Heart Rate 64 /min BP Systolic Sitting 130 mmHg BP Diastolic Sitting 74 mmHg Respiratory Rate 16 /min BMI (Body Mass Index) 39.5 kg/m2 Results Test Date Facility Test Result H/L Range Note CBC Auto Diff 06/21/2014 [facility] White Blood 8.2 10^3/uL N 4.8-10.[address] [place] [address] [phone] Red Blood Count 4.60 10^6/uL N 4.0-5.4 Hemoglobin 15.1 g/dL N 14.0-18.0 Hematocrit 43 % N 42-52 Mean Corpuscular Volume 93 fL N 80-94 Mean Corpuscular Hemoglobin 33 pg High 27-31 Mean Corpuscular HGB Conc 36 g/dL N 31-36 Red Cell Distribution Width 14 % N 10.5-15 Platelet Count 325 10^3/uL N 150-450 Mean Platelet Volume 7 um3 Low 7.4-10.4 Abs Neutrophils 5.3 10^3/uL N 1.5-7.7 Abs Lymphocytes 2.3 10^3/uL N 1.0-4.8 Abs Monocytes 0.5 10^3/uL N 0-0.8 Abs Eosinophils 0.1 10^3/uL N 0-0.6 Abs Basophils 0 10^3/uL N 0-0.2 Abs Nucleated RBC 0 10^3/uL N Granulocyte % 64.8 % N 38-83 Lymphocyte % 27.4 % N 25-47 Monocyte % 6.0 % N 1-9 Eosinophil % 1.4 % N 0-6 Basophil % 0.4 % N 0-2 Nucleated Red Blood Cells % 0 N Comp Metabolic Panel 06/21/2014 [facility] Sodium 140 mmol/L N 133-[address] [place] [address] [phone] Potassium 4.5 mmol/L N 3.5-5.0 1 Chloride 105 mmol/L N 101-111 Co2 Carbon Dioxide 29 mmol/L N 22-32 Anion Gap 6 mmol/L N 2-11 Glucose 133 mg/dL High 70-100 Blood Urea Nitrogen 14 mg/dL N 6-24 Creatinine 0.74 mg/dL N 0.67-1.17 BUN/Creatinine Ratio 18.9 N 8-20 Calcium 9.8 mg/dL N 8.6-10.3 Total Protein 6.5 g/dL N 6.4-8.9 Albumin 4.0 g/dL N 3.2-5.2 Globulin 2.5 g/dL N 2-4 Albumin/Globulin Ratio 1.6 N 1-3 Total Bilirubin 0.40 mg/dL N 0.2-1.0 Alkaline Phosphatase 67 U/L N 34-104 Alt 23 U/L N 7-52 Ast 19 U/L N 13-39 Egfr Non- 102.8 N >60 Egfr 132.3 N >60 2 Laboratory test 06/21/2014 [facility] B Type Natriuretic 29 pg/ mL N [address] [place] [address] [phone] Urinalysis 02/08/2013 [facility] Urine Color Yellow [address] [place] [address] [phone] Urine Appearance Clear Urine Specific [place] 1.025 1.010-1.030 Urine Esterase Negative Negative Urine Nitrate Negative Negative Urine Urobilinogen Negative E.U./dL Negative Urine Protein Negative mg/dL Negative Urine pH 5.5 5-9 Urine Blood Negative Negative Urine Ketones Negative mg/dL Negative Urine Bilirubin Negative Negative Urine Glucose Negative mg/dL Negative CBC Auto Diff 02/08/2013 [facility] White Blood 8.8 10^3/uL 4.8-10.[address] [place] [address] [phone] Red Blood Count 4.58 10^6/uL 4.0-5.4 Hemoglobin [...] Cells % 0 Comp Metabolic Panel 02/08/2013 [facility] Sodium 141 mmol/L 133-145 [address] [place] [address] [phone] Potassium 4.0 mmol/L 3.5-5.0 Chloride 107 mmol/L [...] Egfr Non- 94.2 >60 Egfr 121.2 >60 4 Laboratory test 02/08/2013 [facility] Troponin I 0 ng/mL 0- 0.06 5 finding [address] [place] [address] [phone] Inr/Protime 02/08/2013 [facility] Inr 0.92 0.87-0.97 [address] [place] [address] [phone] Laboratory test 02/08/2013 [facility] Activated 29.8 seconds 22.18-37.1 finding 101 [facility] Partial [address] [place] [address] Thrombo Time [phone] Potassium reference range changed effective 06/20/14 2 Because ethnic data is not always readily [...] 15-29 5 Kidney failure <15 (or dialysis) 3 >100 to <200 pg/mL: likely compensated congestive heart failure (CHF) 200 to 400 pg/mL: likely moderate CHF >400 pg/mL: likely moderate to severe CHF [facility] 4 Because ethnic data is not always readily [...] 15-29 5 Kidney failure <15 (or dialysis) 5 Reference Range and Interpretation: TnI (ng/mL) Interpretation Less Than 0.06 ng/mL Not supportive of diagnosis of PA 0.06 - 0.50 ng/mL Indeterminate: suggest serial studies if clinically indicated. Greater than 0.5 ng/mL Consistent with diagnosis of PA Procedures Date Code Description Status 03/27/2017 38534 Stress Test Completed 03/27/2017 52229 Myocardial Perfusion Imaging Tomographic (Spect) Multiple Completed Studies 03/25/2017 41097 Stress Test Completed 02/01/2012 17007 Inject/Drain Joint/Bursa Intermediate W/O US Completed Encounters Type Date Location Provider Dx Diagnosis Office Visit 07/18/2018 [facility] Mable Guzman MD S80.01xA Contusion of 10:15a [facility] right knee, initial encounter M25.461 Effusion, right knee Office Visit 05/12/2018 [place] Christopher Jeremie, R41.1 Anterograde 1:45p Neurologic M.D. amnesia [facility] G47.10 Hypersomnia, unspecified Office Visit 12/09/2017 Valente Chao, R41.1 Anterograde 8:15a Neurologic M.D. amnesia [facility] Office Visit 07/18/2017 Valente Chao, R41.1 Anterograde 4:00p Neurologic M.D. amnesia [facility] Office Visit 06/17/2017 [place] Lucas Chao, R41.1 Anterograde 3:00p Neurologic M.D. amnesia [facility] G47.10 Hypersomnia, unspecified Office Visit 03/12/2016 Neurosurgery Isaiah M51.36 Other 11:45a [facility] Derrek Gage intervertebral disc degeneration, lumbar region Office Visit 02/10/2016 Neurosurgery Danielle Peralta, M54.16 Radiculopathy, 9:15a [facility] PA-C lumbar region Office Visit 04/27/2013 Orthopedic Tomas Underwood6.Neal Bursitis Or 2:00p [facility] Washburn M.D. Tendinitis Achilles Office Visit 10/20/2012 Gino Underwood6.Neal Bursitis Or 2:00p [facility] Washburn M.D. Tendinitis Achilles Office Visit 08/18/2012 Gino Marin 726.71 Bursitis Or 1:45p [facility] Washburn M.D. Tendinitis Achilles Office Visit 07/14/2012 Gino Underwood6.71 Bursitis Or 1:45p [facility] Washburn M.D. Tendinitis Achilles Office Visit 06/09/2012 Gino Underwood6.71 Bursitis Or 2:45p [facility] Washburn M.D. Tendinitis Achilles Office Visit 02/22/2012 Orthopedic Tomas Underwood6.71 Bursitis Or 9:30a [facility] Washburn M.D. Tendinitis Achilles Office Visit 02/01/2012 Orthopedic Tomas Underwood7.82 Calcium Deposits 10:45a [facility] Washburn M.D. Tendon & Bursa Kj6.Neal Bursitis Or Tendinitis Achilles Plan of Treatment Future Appointment(s):11/21/2018 11:45 am - Lucas Chao M.D. at [facility]07/18/2018 - Mable Guzman, MDS80.01xA Contusion of right knee, initial encounterFollow up:Follow up: after CT ASAPM25.461 Effusion, right knee
--- OUTSIDE RECORDS SUMMARY | 2018-08-02 12:53 | XMS REPORT | Continuity of Care Document ---
:1935 External Reference #:[id number] Author Name Allyssa Currie Care Team Providers Name Role Phone Marianela Botello MD Primary Care Physician Unavailable Payers Type Date Identification Numbers Payment Provider Subscriber Effective: 2002 Policy Number: [id number] Medicare Antonio Taveras PayID: [id number] [address] [place] [address] Effective: 2013 Policy Number: [facility] Antonio Taveras [id number] PayID: [id number] [address] [place] [address] Advance Directives Description No Information Available Problems [...] Use Denies Drug Use Smoking Status Reviewed: 07/22/18 Patient is a former smoked in early [...] a day Vitamin D / Hx Capsules [id number] 1 cap by Unknown (Ergocalcifero 0000 - [...] Available Vital Signs Date Vital Result Comment 07/22/2018 2:46pm Height 66 inches 5'6" Weight 257.00 lb BP Systolic 140 mmHg BP Diastolic 62 mmHg Respiratory Rate 20 /min Pain Level 2 BMI (Body Mass Index) 41.5 kg/m2 07/18/2018 10:47am Height 66 inches 5'6" Weight [...] H/L Range Note CBC Auto Diff 06/21/2014 [facility] White Blood 8.2 10^3/uL N 4.8-10.[address] [place] [address] [phone] Red Blood Count 4.60 10^6/uL N 4.0-5.4 [...] % 0 N Comp Metabolic Panel 06/21/2014 [facility] Sodium 140 mmol/L N 133-[address] [place] [address] [phone] Potassium 4.5 mmol/L N 3.5-5.0 1 Chloride [...] 132.3 N >60 2 Laboratory test 06/21/2014 [facility] B Type Natriuretic 29 pg/ mL N [address] [place] [address] [phone] Urinalysis 02/08/2013 [facility] Urine Color Yellow [address] [place] [address] [phone] Urine Appearance Clear Urine Specific [place] 1.025 1.010-1.030 Urine Esterase Negative Negative Urine Nitrate Negative Negative Urine Urobilinogen Negative E.U./dL Negative Urine Protein Negative mg/dL Negative Urine pH 5.5 5-9 Urine Blood Negative Negative Urine Ketones Negative mg/dL Negative Urine Bilirubin Negative Negative Urine Glucose Negative mg/dL Negative CBC Auto Diff 02/08/2013 [facility] White Blood 8.8 10^3/uL 4.8-10.[address] [place] [address] [phone] Red Blood Count 4.58 10^6/uL 4.0-5.4 Hemoglobin [...] Cells % 0 Comp Metabolic Panel 02/08/2013 [facility] Sodium 141 mmol/L 133-145 [address] [place] [address] [phone] Potassium 4.0 mmol/L 3.5-5.0 Chloride 107 mmol/L [...] Egfr 121.2 >60 4 Laboratory test 02/08/2013 [facility] Troponin I 0 ng/mL 0- 0.06 5 finding [address] [place] [address] [phone] Inr/Protime 02/08/2013 [facility] Inr 0.92 0.87-0.97 [address] [place] [address] [phone] Laboratory test 02/08/2013 [facility] Activated 29.8 seconds 22.18-37.1 finding 101 [facility] Partial [address] [place] [address] Thrombo Time [phone] Potassium reference range changed effective 06/20/14 [...] 0.06 ng/mL Not supportive of diagnosis of [place] 0.06 - 0.50 ng/mL Indeterminate: suggest serial studies if clinically indicated. Greater than 0.5 ng/mL Consistent with diagnosis of [place] Procedures Date Code Description Status 03/27/2017 21694 Stress Test Completed 03/27/2017 50352 Myocardial Perfusion Imaging Tomographic (Spect) Multiple Completed Studies 03/25/2017 60538 Stress Test Completed 02/01/2012 98916 Inject/Drain Joint/Bursa Intermediate W/O US Completed Encounters Type Date Location Provider Dx Diagnosis Office Visit 05/12/2018 [place] [facility] Christopher Jeremie, R41.1 Anterograde 1:45p [facility] MShrutiD. amnesia G47.10 Hypersomnia, unspecified Office Visit 12/09/2017 [place] Lucas Chao, R41.1 Anterograde 8:15a Neurologic M.D. amnesia [facility] Office Visit 07/18/2017 Valente Chao, R41.1 Anterograde 4:00p Neurologic M.D. amnesia [facility] Office Visit 06/17/2017 [place] Lucas Chao, R41.1 Anterograde 3:00p Neurologic M.D. 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 Tendinitis Achilles Office Visit 10/20/2012 Gino Underwood6.71 Bursitis Or 2:00p [facility] Washburn M.D. Tendinitis Achilles Office Visit 08/18/2012 Gino Marin 726.71 Bursitis Or 1:45p [facility] Washburn M.D. Tendinitis Achilles Office Visit 07/14/2012 Gino Marin 726.71 Bursitis Or 1:45p Services [...] Or Tendinitis Achilles Plan of Treatment Future Appointment(s):08/22/2018 11:15 [facility] - Mable Guzman MD at [facility]11/21/2018 11:45 [facility] - Lucas Chao M.D. at [place] [facility]
--- OUTSIDE RECORDS SUMMARY | 2018-08-02 12:54 | XMS REPORT ---
:1935 External Reference #:[id number] Author Organization [facility] Address [address] [place] [address] Phone [phone] Care Team Providers Name Role Phone Marianela Botello Care Team Information Timber Grader Unavailable Marianela Botello Primary Care Physician Unavailable Payers Type Date Identification Numbers Payment Provider Subscriber Medicare Primary Effective: Policy Number: Medicare [place] Deny Bundy 2002 [id number] PayID: [id number] [place] [address] Medigap Part B Effective: Policy Number: [facility] Deny Valle 2013 [id number] 11 Options Nitin Group Name: [facility] Supplement Plan [address] PayID: [id number] [place] [address] Problems Date Description Provider Status Onset: 01/31/2018 [...] Comments General No family hx lung,colon, breast.No GA/Stroke. Father . 70. DM Mother 66, ovarian cancer. Number of Children 4 girls with first , one boy with current , Lizzie. All healthy. First Brother healthy. [place]. Second Brother as of 03/26/2017. healthy. [place]. First Sister early 60's, Cancer started in her spine. 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 Cigarette Use Used to smoke a pipe [...] Form Strength Qnty SIG Indications Ordering Provider Cephalexin 07/17 Active Capsules 500mg 30cap 1 by mouth M25.561 Marianela Patel s three times Ayan, daily . M.D. Gluco Perfect 3 11/22 Active Device 3Meter 1unit one device R73.01 Melany Blood Glucose s so twice Jeff, Meter daily dosing [employer] Cyanocobalamin 04/25 Active Solution 1000mcg/M 12uni inject 1ml Marianela Patel L ts intramuscula Ayan, rly once a M.D. month Citalopram 07/08 Active Tablets 40mg 30tab Take One F32.9 Marianela Patel Hydrobromide s Tablet By Ayan, Mouth Once M.D. Daily Aspirin 81 05/10 Active Tablets 81mg 1 by mouth every day [facility] Finasteride Active Tablets 5mg 1 by mouth Unknown /0000 every day Donepezil HCL Active Tablets 10mg 1 by mouth Unknown /0000 every day Vitamin D Active Capsules 2000Unit 1 by mouth Unknown /0000 every day Metformin HCL 11/22 Hx Tablets 500mg 90tab 1 by mouth R73.01 s every day Jeff, - for two [employer] 01/31 weeks, increase to 2 by mouth daily if tolerated after two weeks Advair Diskus 10/15 Hx Aerosol 100-50mcg 60uni 1 puff twice /Dose ts a day, rinse Jeff, - after use [employer] 10/25 Vitamin D 04/02 Hx Capsules 28064Hihj 8caps take 1 Marianela L. (Ergocalciferol /2015 capsule by Ayan, ) - mouth once M.D. 03/18 weekly for weeks. Physical 01/18 Hx evaluate and M54.5 Marianela L. 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 ER (SR) ER 12HR s twice a day. Ayan, - in the in M.D. 01/18 the and second pill before 1 pm. mail to home Vitamin D 05/10 Hx Capsules 00925Igiq 8caps take 1 E55.9 Marianela L. (Ergocalciferol /2014 capsule by Ayan, ) - mouth once M.D. 03/08 weekly for weeks. no refills Bupropion HCL 03/29 Hx Tablets 100mg 60tab 1 by mouth 311 Marianela L. ER (SR) ER 12HR s twice a day. Ayan, [...] 2 by mouth 466.0 today and 1 Sarwat, LEAD PRINTER - tab x 4 days 11/06 Cheratussin ac 11/01 Hx Syrup 100-10mg/ 118ml 2 teaspoon 466.0 5ML every 4 Sarwat, LEAD PRINTER - hours as 11/11 needed Proair HFA 11/01 Hx Aerosol 108(90Bas 1unit 2 puffs 466.0 e) s every 4 Sarwat, LEAD PRINTER - mcg/Act hours as 03/29 needed Vitamin D-3 07/08 Hx Capsules 3000Units 1 by mouth 268.9 every day [facility] [place] Bupropion HCL 05/20 Hx Tablets 100mg 60tab 1 po daily x 311 Marianela Patel ER (SR) ER 12HR s 1 week. then Ayan, - bid M.D. 03/29 thereafter. in the am and second pill before 1 pm. Debrox 05/10 Hx Solution 6.5% 1bott 5-10 drops 380.4 Jasmyn le in affected Deloit, - ear twice a M.D. Zostavax 03/19 Hx Solution 86350Gds/ 1unit in ject sq V70.0 Marianela Patel /2013 Rec 0.65ML s Ayan, - M.D. 05/09 Citalopram 03/19 Hx Tablets 10mg 43tab 2 po daily x 311 Marianela LShruti Hydrobromide s 2 weeks Ayan, - then 1 po M.D. 07/08 daily x weeks. then 1 po every other day x 2 weeks. then 1 po every 2 days x 2 weeks . Vitamin D 03/19 Hx Capsules 13021Szel 10cap 1 po weekly 268.9 Marianela LShruti /2013 s x 10. no Ayan, - refills M.D. 07/08 Physical 02/25 Hx evaluate/serenity 278.02 Marianela Patel Therapy at AyanJohan hernández M.D. 05/09 low back pain deconditioni ng Tamsulosin HCL 03/19 Hx Capsules 0.4mg 30cap Take One N40.0 Marianela Jorge s Capsule By Ayan - Mouth Once M.D. 10/25 Daily Minutes After Eating Terazosin HCL 05/23 Hx Capsules 5mg 120ca 1 PO bid 600.00 Marianela LShruti ps Johan Botello M.D. 03/19 Clobetasol 05/23 Hx Cream 0.05% 30gm thin layer 696.1 Marianela LShruti Propionate bid to Johan Botello affected M.D. 02/25 areas only 2 weeks at atime. Terazosin HCL 11/29 Hx Capsules 5mg 60cap 1 po at hs x 788.43 Marianela LShruti s 2 weeks, Johan Botello then 2 po M.D. 02/09 thereafter. Physical 03/29 Hx evaluate and 278.02 Marianela LShruti Therapy treat low Johan Botello back pain, M.DShruti 04/04 knee pain, deconditioni ng Terazosin HCL 03/29 Hx Capsules 1mg 30cap 1 po at 600.00 Marianela Jorge s bedtime Johan Botello M.D. 05/23 Citalopram 11/30 Hx Tablets 40mg 30tab Take One 311 Marianela LShruti Hydrobro s Tablet By Ayan - Mouth Every [...] Little M.D. Injection 05/12/ Administered Injection Jaime Bunch Or Rhys Donohue M.D. B-12 Injection 12/17/ Administered Injection Marianela Botello M.D. Injection 12/17/ Administered Injection Marianela LShruti Subcutaneous Or 2017 Ayan, Intramuscular M.DShruti B-12 Injection 07/25/ Administered Injection Marianela L. 2016 Derrek Botello Injection 07/25/ Administered Injection Marianela LShruti Subcutaneous Or 2016 Ayan, Intramuscular M.DShruti B-12 Injection 06/25/ Administered Injection Marianela L. 2016 Derrek Botello Injection 06/25/ Administered Injection Marianela LShruti Subcutaneous Or 2016 Ayan, Intramuscular M.DShruti B-12 Injection 04/25/ Administered Injection Marianela L. 2016 Ramirez Botello. Injection 04/25/ Administered Injection Marianela LShruti Subcutaneous Or 2016 Ayan Intramuscular Jorge.Tatiana Immunizations CPT Code Status Date Vaccine Reaction Lot # [id number] Given 07/08/2014 Pneumococcal Conjugate Vacc-13 [id number] Given 03/29/2011 Tdap Tetanus, W Pertussis no reaction noted [id number] Vital Signs Date Vital Result Comment 07/17/2018 BP Systolic 148 mmHg BP Diastolic 78 mmHg Heart Rate 68 /min Body Temperature 98.2 F Respiratory Rate 18 /min Weight 261.00 lb 06/19/2018 BP Systolic 146 mmHg BP Diastolic 66 mmHg Heart Rate 80 /min Body Temperature 98.1 F Respiratory Rate 16 /min 06/12/2018 BP Systolic 144 mmHg BP Diastolic [...] Result H/L Range Note Laboratory test finding 06/12/2018 Vitamin B-12 173 pg/mL Low 230-1050 1 Uric Acid 7.7 mg/dL 2.5-9.2 Laboratory test finding 05/12/2018 Vitamin B-12 219 pg/mL Low 230-1050 2 Laboratory test finding 05/12/2018 Hemoglobin A1c (Fma) 6.3 % % High 4.1- 5.7 Laboratory test finding 01/31/2018 Hemoglobin A1c (Fma) 6.4% % High 4.1- 5.7 Basic Metabolic Profile 12/17/2017 Sodium 137 mEq/L 134-149 Potassium 4.6 mEq/L 3.6-5.5 Chloride 99 mEq/L 94-112 Carbon Dioxide 30 mEq/L 21-32 Glucose 129 mg/dL High 70-105 3 BUN 13 mg/dL 6-26 Creatinine 0.8 mg/dL 0.6-1.4 BUN/Creat Ratio 16.3 CALC 8.0-36.0 Calcium 9.0 mg/dL 8.6-10.2 GFR Non- >60 ml/min/1.73m^ >=60 GFR >60 ml/min/1.73m^ >=60 Laboratory test finding 12/12/2017 Vitamin B-12 126 pg/mL Low 230-1050 4 Comprehensive Metabolic Prof 11/05/2017 Sodium 142 mEq/L [...] Color Yellow Urine Appearance Clear Urine Specific Odin 1.021 1.010-1.030 Urine pH 5.0 5-9 Urine Urobilinogen Negative Negative Urine Ketones Negative Negative Urine Protein Negative Negative Urine Leukocytes Negative Negative Urine Blood Negative Negative Urine Nitrite Negative Negative Urine Bilirubin Negative Negative Urine Glucose Negative Negative Laboratory test finding 05/27/2017 B-Type Natriuretic Peptide 49 pg/mL 5 BNP Comp Metabolic Panel 05/27/2017 Sodium 137 mmol/L [...] >60 Egfr 100.8 >60 6 Laboratory test finding 05/27/2017 Creatine Kinase(CK) 122 U/L 10-223 C Reactive Protein 6.26 mg/L High < 5.00 7 Troponin I 0.00 ng/mL <0.04 CKMB 05/27/2017 CKMB ng/mL 2.3 ng/mL 0.6-6.3 CBC No Diff 05/27/2017 White Blood Count 9.5 10^3/uL 3.5-10.8 Red Blood Count 4.71 10^6/uL 4.0-5.4 Hemoglobin 15.3 g/dL 14.0-18.0 Hematocrit 44 % 42-52 Mean Corpuscular Volume 93 fL 80-94 Mean Corpuscular Hemoglobin 33 pg High 27-31 Mean Corpuscular HGB Conc 35 g/dL 31-36 Red Cell Distribution Width 14 % 10.5-15 Platelet Count 286 10^3/uL 150-450 Mean Platelet Volume 7 um3 Low 7.4-10.4 Inr/Protime 05/27/2017 Inr 0.94 0.89-1.11 Laboratory test 05/27/2017 Lactic Acid 1.7 mmol/L 0.5-2.0 8 finding Laboratory test 04/25/2017 RPR Non Reactive Non Reactive 9 finding Laboratory test 03/18/2017 Hemoglobin A1c (Fma) 6.1 % High 4.1-5.7 finding Lipid Profile 03/18/2017 Cholesterol 186 mg/dL 120-200 Triglycerides 643 mg/dL High 30-200 HDL Cholesterol 33 mg/dL 30-70 LDL (Calculated) 24 CALC 0-129 VLDL Cholesterol 129 mg/dL High 0-50 HDL Risk Factor 5.6 CALC High 0.0-4.4 Laboratory test finding 03/18/2017 TSH 2.59 mIU/L 0.50-6.00 Vitamin B-12 201 pg/mL Low 230-1050 Magnesium, Serum 1.9 mEq/L 1.2-2.1 Comprehensive Metabolic Prof 03/18/2017 Sodium 138 mEq/L [...] >60 ml/min/1.73m^ >=60 GFR >60 ml/min/1.73m^ >=60 Complete Blood Count 03/18/2017 WBC 7.0 x10^3/UL 3.6-9.6 RBC 5.01 x10^6/UL 3.90-5.70 HGB 16.0 g/dL 12.1-17.2 HCT 47 % 36-50 MCV 94.0 fL 82.2-97.4 MCH 32.0 pg 27.6-33.3 MCHC 33.9 g/dL 33.0-35.5 RDW 15.1 % High 11.6-13.7 PLT 298 x10^3/UL 150-400 MPV 6.3 fL Low 7.4-10.4 Gran # 5.0 x10^3/UL 1.5-7.2 Lymph# 1.7 x10^3/UL 0.7-4.9 [place]# 0.3 x10^3/UL 0.1-0.9 Gran % 69.4 % 42.2-75.2 Lymph % 25.3 % 20.5-51.1 [place]% 5.3 % 1.7-9.3 Laboratory test finding 03/18/2017 Folate Level 13.80 ng/mL 3.00-16.00 LDL, Direct 58 mg/dL 0-130 Laboratory test finding 06/12/2016 PSA Diagnostic 0.476 ng/mL 0-4.0 10 Complete Blood Count 03/08/2016 WBC 5.8 x10^3/UL 3.6-9.6 RBC 4.74 x10^6/UL 3.90-5.70 HGB 15.7 g/dL 12.1-17.2 HCT 46 % 36-50 MCV 96.0 fL 82.2-97.4 MCH 33.0 pg 27.6-33.3 MCHC 34.4 g/dL 33.0-35.5 RDW 14.9 % High 11.6-13.7 PLT 283 x10^3/UL 150-400 MPV 6.4 fL Low 7.4-10.4 Gran # 4.2 x10^3/UL 1.5-7.2 Lymph# 1.4 x10^3/UL 0.7-4.9 [place]# 0.2 x10^3/UL 0.1-0.9 Gran % 69.4 % 42.2-75.2 Lymph % 25.6 % 20.5-51.1 [place]% 5.0 % 1.7-9.3 Lipid Profile 03/08/2016 Cholesterol 222 mg/dL High 120-200 Triglycerides 161 mg/dL 30-200 HDL Cholesterol 49 mg/dL 30-70 LDL (Calculated) 141 CALC High 0-129 VLDL Cholesterol 32 mg/dL 0-50 HDL Risk Factor 4.5 CALC High 0.0-4.4 Laboratory test finding 03/08/2016 Vitamin D25 30 30-100 11 Comprehensive Metabolic Prof 03/08/2016 Sodium 147 mEq/L [...] GFR >60 ml/min/1.73m^ >=60 Laboratory test finding 03/08/2016 TSH 2.00 mIU/L 0.50-6.00 Free T4 0.89 ng/dL 0.75-1.54 Laboratory test 03/08/2016 Hemoglobin A1c (Fma) 6.2 % High 4.1-5.7 finding Laboratory test 01/15/2016 Urine Culture And SEE RESULT 12, 13 finding Sensitivities BELOW Lipid Profile 03/29/2015 Cholesterol 208 mg/dL High 120-200 Triglycerides 133 mg/dL 30-200 HDL Cholesterol 52 mg/dL 30-70 LDL (Calculated) 129 CALC 0-129 VLDL Cholesterol 27 mg/dL 0-50 HDL Risk Factor 4.0 CALC 0.0-4.4 Laboratory test finding 03/29/2015 Microalb, Random (Fma/CMC/CTX) 5.9 mg/L 0.5-37 Hemoglobin A1c (Fma/CMC,CX) 5.6 % 4.1-5.7 Laboratory test finding 03/29/2015 Vitamin D25 32 30-100 14 PSA 1.0 ng/mL 0.0-4.0 Complete Blood Count 03/29/2015 WBC 6.4 x10^3/UL 3.6-9.6 RBC 4.73 x10^6/UL 3.90-5.70 HGB 15.7 g/dL 12.1-17.2 HCT 45 % 36-50 MCV 95.0 fL 82.2-97.4 MCH 33.3 pg 27.6-33.3 MCHC 35.0 g/dL 33.0-35.5 RDW 14.6 % High 11.6-13.7 PLT 306 x10^3/UL 150-400 MPV 6.2 fL Low 7.4-10.4 Gran # 4.3 x10^3/UL 1.5-7.2 Lymph# 1.8 x10^3/UL 0.7-4.9 [place]# 0.3 x10^3/UL 0.1-0.9 Gran % 65.7 % 42.2-75.2 Lymph % 28.3 % 20.5-51.1 [place]% 6.0 % 1.7-9.3 Comprehensive Metabolic Prof 03/29/2015 Sodium 139 mEq/L 134-149 Potassium 4.7 mEq/L 3.6-5.5 Chloride 102 mEq/L 94-112 Carbon Dioxide 28 mEq/L 21-32 Glucose 120 mg/dL High 70-105 15 BUN 16 mg/dL 6-26 Creatinine 0.9 mg/dL 0.6-1.4 BUN/Creat Ratio 17.8 CALC 8.0-36.0 Calcium 9.2 mg/dL 8.6-10.2 Total Protein 7.0 g/dL 6.4-8.3 Albumin 4.1 g/dL 3.8-5.5 Globulin 2.9 g/dL 2.0-4.8 A/G Ratio 1.4 CALC 0.6-2.3 Alk. Phosphatase 53 U/L 22-95 Alt (SGPT) 21 U/L 7-35 Ast (Sgot) 28 U/L 5-34 Total Bilirubin 0.5 mg/dL 0.2-1.3 Laboratory test finding 03/29/2015 Free T4 0.85 ng/dL 0.75-1.54 TSH 2.56 mIU/L 0.50-6.00 CBC Auto Diff 06/21/2014 White Blood Count [...] Egfr 132.3 >60 17 Laboratory test finding 06/21/2014 B Type Natriuretic 29 pg/mL 18 Peptide Laboratory test finding 03/19/2014 Hemoglobin A1c 6.0 % High 4.1-5.7 (a/[facility],CX) Ua - Non Micro (a) 03/19/2014 Appearance clear Color yellow Glucose neg Bilirubin neg Ketones neg SP Grav 1.025 Blood neg PH 5.5 Protein neg Urobil 0.2 Nitrite neg Leukocytes (a/[facility]/Centrex) neg Comprehensive Metabolic Prof 03/11/2014 Sodium 136 mEq/L 134-149 Potassium 5.0 mEq/L 3.6-5.5 Chloride 99 mEq/L 94-112 Carbon Dioxide 29 mEq/L 21-32 Glucose 122 mg/dL High 70-105 19 BUN 19 mg/dL 6-26 Creatinine 1.0 mg/dL 0.6-1.4 BUN/Creat Ratio 19.0 CALC 8.0-36.0 Calcium 9.7 mg/dL 8.6-10.2 Total Protein 7.8 g/dL 6.3-8.1 Albumin 4.5 g/dL 3.8-5.5 Globulin 3.7 g/dL 2.0-4.8 A/G Ratio 1.4 CALC 0.6-2.3 Alk. Phosphatase 65 U/L 22-95 Alt (SGPT) 26 U/L 7-35 Ast (Sgot) 18 U/L 5-34 Total Bilirubin 0.4 mg/dL 0.2-1.3 Laboratory test finding 03/11/2014 PSA 1.4 ng/mL 0.0-4.0 20 Vitamin D25 18 Low 30-100 Complete Blood Count 03/11/2014 WBC 7.4 x10^3/UL 3.6-9.6 RBC 5.00 x10^6/UL 3.90-5.70 HGB 16.4 g/dL 12.1-17.2 HCT 48 % 36-50 MCV 96.0 fL 82.2-97.4 MCH 32.8 pg 27.6-33.3 MCHC 34.2 g/dL 33.0-35.5 RDW 12.9 % 11.6-13.7 PLT 272 x10^3/UL 150-400 MPV 6.6 fL Low 7.4-10.4 Gran # 5.1 x10^3/UL 1.5-7.2 Lymph# 2.0 x10^3/UL 0.7-4.9 [place]# 0.3 x10^3/UL 0.1-0.9 Gran % 67.0 % 42.2-75.2 Lymph % 27.7 % 20.5-51.1 [place]% 5.3 % 1.7-9.3 Laboratory test finding 03/11/2014 TSH 1.91 mIU/L 0.50-6.00 Laboratory test finding 03/19/2013 PSA 1.30 ng/mL 0.00-4.00 TSH 1.79 mIU/L 0.50-6.00 Ua - Non Micro (Fma) 03/19/2013 Appearance CLEAR Color YELLOW Glucose NEG Bilirubin NEG Ketones NEG SP Grav 1.025 Blood NEG PH 5.5 Protein NEG Urobil 0.2 Nitrite NEG Leukocytes (Fma/CMC/Centrex) NEG Laboratory test finding 02/08/2013 Activated Partial 29.8 seconds 22.18- 37.18 Thrombo Time Inr/Protime 02/08/2013 Inr 0.92 0.87-0.97 Laboratory test finding 02/08/2013 Troponin I 0 ng/mL 0-0.06 21 Comp Metabolic Panel 02/08/2013 Sodium 141 mmol/L [...] Egfr Non- 94.2 >60 Egfr 121.2 >60 22 CBC Auto Diff 02/08/2013 White Blood Count [...] 0-2 Nucleated Red Blood Cells % 0 Urinalysis 02/08/2013 Urine Color Yellow Urine Appearance Clear Urine Specific Odin 1.025 1.010-1.030 Urine Esterase Negative Negative Urine Nitrate Negative Negative Urine Urobilinogen Negative E.U./dL Negative Urine Protein Negative mg/dL Negative Urine pH 5.5 5-9 Urine Blood Negative Negative Urine Ketones Negative mg/dL Negative Urine Bilirubin Negative Negative Urine Glucose Negative mg/dL Negative CBC Electronic (Fma) 05/23/2012 WBC 9.8 High 3.6-9.6 23 RBC 4.87 3.90-5.70 Hemoglobin (Fma/CMC/CTX) 15.6 g/dL 12.1 - 17.2 Hematocrit (Fma/CMC/CTX) 46.7 % 36.1 - 50.3 Platelets 278 10^3/ul 150-400 Lymph% 25.4 20.5-51.1 Mixed% 3.3 Neutrophils % 71.3 Mean Corpuscular Vol 96 82.2-97.4 Mean Corpuscular Hemoglobin 32.0 27.6-33.3 Mean Corpuscular Hemo Concen 33.4 32.0-36.0 RDW 12.6 11.6-13.7 Mean Platelet Volume 6.3 Low 6.5-11.0 Ua - Non Micro (a) 05/23/2012 Appearance yellow Color clear Glucose neg [...] mg/dL 2.5-9.2 Surgical Pathology 05/09/2011 Surgical Pathology 24 <SEE NOTE> Comprehensive Metabolic 03/29/2011 Albumin 4.4 g/dL 3.8-5.5 Prof Alk. Phos. 66 U/L 22-95 Alt (SGPT) 24 U/L [...] 1 RESULTS VERIFIED BY REPEAT ANALYSIS 2 RESULTS VERIFIED BY REPEAT ANALYSIS 3 NON-FASTING 4 RESULTS VERIFIED BY REPEAT ANALYSIS 5 >100 to <200 pg/mL: likely compensated congestive heart failure (CHF) 200 to 400 pg/mL: likely moderate CHF >400 pg/mL: likely moderate to severe CHF 6 Because ethnic data is not always [...] 5 Kidney failure <15 (or dialysis) 7 Acute inflammation: >10.00 8 [facility] Severe Sepsis and Septic Shock Management Bundle Measure requires all lactic acids initially measuring >2.0 mmol/L be repeated. 9 A courtesy copy of this report has been sent to [phone]. 10 Serum levels of PSA measured using the Jessica Ellinger DXI Hybritech immunoassay should not be interpreted [...] methods or kits cannot be used interchangeably. 11 FASTING pleasae copy to Dr. Yumiko Vargas, [facility]. 12 [id number] 13 SEE RESULT BELOW Name: DENY BUNDY : [address]: Teagan Rutherford MD Acct: [id number] Unit: [id number] AGE: 80 Location: [facility] Re01/15/16 SEX: M Status: DEP ER SPEC: [id number] GIOV[place]: 01/15[birth year]16-[address] [facility] DR: Teagan Rutherford MD REQ: [id number] RECD: 01/16/16-125 STATUS: JOSE BRYAN DR: Marianela Botello MD _ SOURCE: URINE [facility]: ORDERED: Urine Culture COMMENTS: [id number] Procedure Result Reported Site Urine Culture Final 01/18/16- 820 ML Organism 1 ESCHERICHIA COLI Ranger Count 10-25,000 (Moderate) CFU/ML 1. ESCHERICHIA COLI [...] antibiotic reporting. * ML - MAIN LAB ([facility]) . END OF REPORT * ML=Testing performed at Main Lab DEPARTMENT OF PATHOLOGY, [address] [place] [address] Elliot Carrero M.D. Director [facility] # [id number] 14 FASTING 15 consistent w/ previous results 16 Potassium reference range changed effective 06/20/14 [...] 5 Kidney failure <15 (or dialysis) 18 >100 to <200 pg/mL: likely compensated congestive heart failure (CHF) 200 to 400 pg/mL: likely moderate CHF >400 pg/mL: likely moderate to severe CHF [facility] 19 RESULTS VERIFIED BY REPEAT ANALYSIS 20 FASTING 21 Reference Range and Interpretation: TnI (ng/mL) Interpretation Less Than 0.06 ng/mL Not supportive of diagnosis of GA 0.06 - 0.50 ng/mL Indeterminate: suggest serial studies if clinically indicated. Greater than 0.5 ng/mL Consistent with diagnosis of GA 22 Because ethnic data is not always readily [...] 15-29 5 Kidney failure <15 (or dialysis) 23 results rechecked 24 ---- RUN DATE: 05/11/11 [facility] NMI LIVE PAGE 1 RUN TIME: 1557 Specimen Inquiry RUN USER: INTERFACE -- Name: DEYN BUNDY Accpatricia#: [id number] Status: REG REF Re05/09/11 Age/Sex: 75/M Unit#: [id number] Location: [address] [place] [address]. : 39 -- Specimen: [id number] SOUT Spec Date: 05/09/[address]: Rommel oliver MD Spec Type: SURGICAL P Received: 05/10/11 Copies to: Marianela lowry MD SPECIMEN 1) ILEOCECAL POLYP 2) TWO MID RIGHT COLON POLYPS 3) HEPATIC FLEXURE POLYP HISTORY POST-OP DIAGNOSIS: Colonoscopy to cecum. Advanced pancolonic diverticulos is. Right colon polyps. CLINICAL INFORMATION: History of colon polyps. GROSS DESCRIPTION 1) The specimen is received in formalin labelled Deny [place], Ileocecal Polyp, and consists of two fragments of white tissue each measuring 0.1 x 0.1 x 0.1 cm. Submitted entirely, one cassette labelled 1. 2) The specimen is received in formalin labelled Deny [place], Mid Right Colon Polyps, and consists of several fragments of yellow tissue measuring in aggregate 0.6 x 0.6 x 0.3 cm. Submitted entirely, one cassette labelled 2. 3) The specimen is received in formalin labelled Deny [place], Hepatic Flexure Polyp, and consists of one [...] GILLETTE 05/11/11 1556 -- DEPARTMENT OF PATHOLOGY, [address] [place] [address] [facility] Permit #[id number] Elliot Carrero M.D. Director Pura Gillette M.D. Crew Leader Dir sonido -- Procedures Date CPT Code Description Status Comment 05/12/2018 27870 Injection Subcutaneous Or Completed Intramuscular 12/17/2017 19830 Injection Subcutaneous Or Completed Intramuscular 11/22/2017 60220 Remove Impact Cerumen Irrigati Completed 10/25/2017 03660 Pulse Oximetry Completed 10/25/2017 76507 Nebulizer Treatment Completed 07/25/2017 35888 Injection Subcutaneous Or Completed Intramuscular 06/25/2017 31045 Injection Subcutaneous Or Completed Intramuscular 04/25/2017 28652 Injection Subcutaneous Or Completed Intramuscular 03/18/2017 80463 Electrocardiogram Complete Completed 04/07/2015 15963 Remove Impacted Cerumen Completed 11/01/2014 22711 Pulse Oximetry Completed 07/20/2014 Colonoscopy Completed No polyps 2013. Tubular adenomas in the past. [place] colonic diverticulosis. adenomas in [place]. No routine follow up planned. Will reassess in 2023. 03/19/2014 41300 Finger Or Heel Stick Completed 03/19/2013 06852 Vision Test- screening test of Completed visual acuity, quantitative, bila 05/09/2011 Colonoscopy Completed Encounters Type Date Location Provider CPT E/M Dx Office Visit 06/19/2018 8:30p Main Office Marianela Botello M.D. 91366 L53.9 S22.41xA D51.8 W01.198A Office Visit 06/12/2018 3:00p [facility] Marianela Botello M.D. 43107 D51.8 E11.9 L03.031 E66.3 Office Visit 05/12/2018 11:10a Main Office Jaime Little M.D. 04987 E11.9 G31.84 D51.8 Office Visit 01/31/2018 11:20a [facility] Marianela Botello M.D. 55097 E11.9 G31.84 Office Visit 12/17/2017 10:40a Main Office Marianela Botello M.D. 96515 R41.1 D51.8 E11.9 Office Visit 11/22/2017 8:45a [facility] Office Melany Aguilar, [facility] 75973 R73.01 E78.1 E66.3 H61.23 Office Visit 10/25/2017 2:00p [facility] Melany Aguilar, [facility] 68470 R05 R06.2 E78.1 R73.01 D51.8 Office Visit 04/25/2017 8:30a [facility] Marianela Botello M.D. 65188 G31.84 D51.8 R73.01 E78.1 Office Visit 04/09/2017 1:00p [facility] Rosalia Castro np-C 35780 G31.84 Office Visit 03/26/2017 2:00p [facility] aMrianela Botello M.D. 80944 Z00.01 E66.3 F32.9 N40.0 R73.01 Office Visit 03/18/2017 11:00a Main Office Marianela Botello M.D. 03624 E66.3 R06.02 E11.9 G31.84 M54.5 E78.1 Office Visit 03/08/2016 10:00a [facility] Marianela Botello M.D. 23169 Z00.00 R73.01 E78.4 E55.9 M54.5 Office Visit 01/19/2016 9:20a [facility] Office Marianela Botello M.D. 18234 M54.5 E55.9 E66.3 N39.0 Office Visit 05/10/2015 11:20a [facility] Office Marianela Botello M.D. 04470 311 995.27 268.9 Office Visit 04/07/2015 9:15a [facility] Zoe Hanna, [facility] 09649 780.4 380.4 Office Visit 03/29/2015 9:40a [facility] Marianela Botello M.D. 76642 311 780.4 278.02 268.9 600.00 790.21 Office Visit 11/01/2014 3:30p Main Office Matilad RUDY Fam 48932 466.0 Office Visit 07/08/2014 3:40p [facility] Office Marianela Botello M.D. 02419 311 278.02 v03.82 Office Visit 05/20/2014 3:20p [facility] Marianela Botello M.D. 52746 380.4 311 278.02 Office Visit 05/10/2014 9:00a [facility] Office Jasmyn Thomas M.D. 18118 380.4 Office Visit 03/19/2014 2:00p [facility] Office Marianela Botello M.D. 58034 V70.0 278.02 311 600.00 696.1 608.89 268.9 790.6 Office Visit 02/25/2014 2:40p [facility] Office Marianela Botello M.D. 79558 724.2 278.02 Office Visit 03/19/2013 9:00a [facility] Office Marianela Botello M.D. 24960 780.4 278.02 600.00 311 696.1 V72.0 Office Visit 02/09/2013 2:30p [facility] Office Melany WadeartSPENSERP 84077 780.4 Office Visit 05/23/2012 1:20p [facility] Office Marianela Botello M.D. 37890 V70.0 278.02 311 719.47 600.00 696.1 782.9 Office Visit 11/30/2011 9:40a [facility] Office Marianela Botello M.D. 70976 788.43 311 719.47 380.4 Office Visit 04/04/2011 3:00p [facility] [facility] Melany blair [place], [address] [phone] M.DShruti Office Visit 03/29/2011 2:00p [facility] Office Marianela Botello M.D. 75262 V76.44 V70.0 [phone] 782.9 v06.5 Office Visit 11/30/2010 2:00p [facility] Office Marianela Botello M.D. [id number] V70.0 Plan of Care Future Appointment(s):08/18/2018 10:15 am - Marianela Botello M.D. at [facility] [id number]/17/2018 - Marianela Botello M.D.D51.8 Other vitamin B12 deficiency anemiasNew Labs:B12 (Fma/CMC/Centrex)M25.561 Pain in right kneeNew Medication:Cephalexin 500 mgNew Labs:CBC W/DiffComments:refer to ortho for aspiration.concern for infection. if he develops a fever, go to the emergency room Ortho can get the fluid out .Put ice on it as often as possibleAllComments: ~B_~U_Medication Management~b_~u_ Patient Understands medications he's taking? Yes No questionable Are there Barriers to Adherence? Yes No You are lazy and stubborn, according to your own words. Has the patient been asked about herbal supplements and therapies, and OTC meds? Yes No
[2018-08-02 12:58] VITALS: BP 148/66
[2018-08-02] MEDS ORDERED: Acetaminophen TAB* 325 MG PO ONE (13:19)
--- NOTE | 2018-08-02 13:26 | UC ---
Minor Trauma HPI - HPI Summary HPI Summary: 2 days ago while walking on ice fell forward onto knees. Had immediate pain in L foot and L knee but has been able to bear weight. Now L foot is improving, but knee is still painful. Denies hx of knee injury or surgery. - History of Current Complaint Chief Complaint: UCLowerExtremity Stated Complaint: KNEE COMPLAINT Time Seen by Provider: 08/02/18 13:09 Hx Obtained From: Patient Onset/Duration: Sudden Onset Onset Of Pain: Immediate Severity Initially: Moderate Severity Currently: Moderate Pain Intensity: 8 Mechanism Of Injury: Fall From A Standing Position Aggravating Factor(s): Ambulation, Movement - Allergies/Home Medications Allergies/Adverse Reactions: Allergies Allergy/AdvReac Type Severity Reaction Status Date / Time No Known Allergies Allergy Verified 06/17/18 14:35 PMH/Surg Hx/FS Hx/Imm Hx Endocrine History: Diabetes Cardiovascular History: Hypertension Other Psychological History: dementia Other History Of: Negative For: HIV, Hepatitis B, Hepatitis C, Anticoagulant Therapy - Surgical History Surgical History: Yes Surgery Procedure, Year, and Place: tonsils and adenoids; inguinal hernia - Family History Known Family History: Positive: None, Diabetes Negative: Cardiac Disease, Hypertension - Social History Occupation: Retired Lives: With Family Alcohol Use: Occasionally Substance Use Type: None Smoking Status (MU): Never Smoked Tobacco Have You Smoked in the Last Year: No Review of Systems All Other Systems Reviewed And Are Negative: Yes Constitutional: Positive: Negative Skin: Positive: Negative Eyes: Positive: Negative ENT: Positive: Negative Respiratory: Positive: Negative Cardiovascular: Positive: Negative Gastrointestinal: Positive: Negative Genitourinary: Positive: Negative Motor: Positive: Negative Neurovascular: Positive: Negative Musculoskeletal: Positive: Arthralgia, Decreased ROM Neurological: Positive: Negative Psychological: Positive: Negative Is Patient Immunocompromised?: No Physical Exam Triage Information Reviewed: Yes Appearance: Pain Distress, Obese Vital Signs: Initial Vital Signs Temp 97.2 F 08/02/18 12:53 Pulse 64 08/02/18 12:53 Resp 18 08/02/18 12:53 BP 148/66 08/02/18 12:53 Pulse Ox 96 08/02/18 12:53 Vital Signs Reviewed: Yes Eye Exam: Normal Eyes: Positive: Conjunctiva Clear ENT Exam: Normal ENT: Positive: Normal ENT inspection, Hearing grossly normal, Pharynx normal Neck exam: Normal Neck: Positive: Supple, Nontender Respiratory Exam: Other - BS faint due to body habitus Cardiovascular Exam: Normal Cardiovascular: Positive: RRR, No Murmur Musculoskeletal Exam: Other - Tender over L 5th base of MT, pain in superior anterior part of knee Neurological Exam: Normal Neurological: Positive: Alert Psychological Exam: Normal Skin Exam: Normal Diagnostics - Radiology No standard instances Radiology Interpretation Completed By: Radiologist Summary of Radiographic Findings: No acute fractures Minor Trauma Course/Dx - Differential Dx/Diagnosis Provider Diagnosis: Left knee sprain, Sprain of left foot, Fall due to ice or snow, Elevated blood pressure, situational Discharge - Sign-Out/Discharge Documenting (check all that apply): Patient Departure All imaging exams completed and their final reports reviewed: Yes - Discharge Plan Condition: Stable Disposition: HOME Patient Education Materials: Knee Sprain (ED), Foot Sprain (ED) Referrals: Marianela Botello MD [Primary Care Provider] - John Auguste MD [Medical Doctor] - Additional Instructions: Weight-bearing is fine, but I want you to move carefully and use a cane or a walker if possible. Continue to take acetaminophen 2 extra strength tablets 3 times per day as needed. - Billing Disposition and Condition Condition: STABLE Disposition: Home
== END 2018-08-02 14:20 | disposition home or self-care (01) ==
LOC: UCEAST 12:48
DX: S83.92XA Sprain of unspecified site of left knee, initial encounter (principal); S93.602A Unspecified sprain of left foot, initial encounter; R03.0 Elevated blood-pressure reading, without diagnosis of hypertension; E11.9 Type 2 diabetes mellitus without complications; I10 Essential (primary) hypertension; F03.90 Unspecified dementia, unspecified severity, without behavioral disturbance, psychotic disturbance, mood disturbance, and anxiety; W00.9XXA Unspecified fall due to ice and snow, initial encounter; Y92.9 Unspecified place or not applicable
CPT/HCPCS: 99212; A9270-GY; G0463

== ENCOUNTER 2018-08-25 12:51 | Emergency (ER) | payer MEDICARE ==
[2018-08-25 13:03] VITALS: BP 141/58
--- NOTE | 2018-08-25 14:17 | UC ---
Lower Extremity/Ankle HPI - HPI Summary HPI Summary: 83-year-old male comes to clinic with a chief complaint of left ankle and foot pain. Pain started to 3 days ago. No known trauma. He has swelling his left ankle and FOOT. Denies any calf pain. It hurts to palpation and ambulation. She also reports his right great toe is been swollen for about 3 months. - History of Current Complaint Chief Complaint: UCLowerExtremity Stated Complaint: L ANKLE INJURY Time Seen by Provider: 08/25/18 12:57 Pain Intensity: 7 - Allergies/Home Medications Allergies/Adverse Reactions: Allergies Allergy/AdvReac Type Severity Reaction Status Date / Time No Known Allergies Allergy Verified 08/25/18 13:03 Home Medications: Home Medications Cyanocobalamin INJ * [Vitamin B12 INJ *] 1,000 mcg IM MONTHLY 08/25/18 [History Confirmed 08/25/18] PMH/Surg Hx/FS Hx/Imm Hx Previously Healthy: Yes - BPH Other History Of: Negative For: HIV, Hepatitis B, Hepatitis C, Anticoagulant Therapy - Surgical History Surgical History: Yes Surgery Procedure, Year, and Place: tonsils and adenoids; inguinal hernia - Family History Known Family History: Positive: None, Diabetes Negative: Cardiac Disease, Hypertension - Social History Alcohol Use: Occasionally Substance Use Type: None Smoking Status (MU): Never Smoked Tobacco Have You Smoked in the Last Year: No Review of Systems All Other Systems Reviewed And Are Negative: Yes Constitutional: Positive: Negative Skin: Positive: Negative Eyes: Positive: Negative ENT: Positive: Negative Respiratory: Positive: Negative Cardiovascular: Positive: Negative Gastrointestinal: Positive: Negative Motor: Positive: Negative Neurovascular: Positive: Negative Musculoskeletal: Positive: Other: - SEE HPI Neurological: Positive: Negative Psychological: Positive: Negative Is Patient Immunocompromised?: No Physical Exam Triage Information Reviewed: Yes Appearance: Well-Appearing, No Pain Distress, Well-Nourished Vital Signs: Initial Vital Signs Temp 97.4 F 08/25/18 12:56 Pulse 61 08/25/18 12:56 Resp 20 08/25/18 12:56 BP 141/58 08/25/18 12:56 Pulse Ox 99 08/25/18 12:56 Vital Signs Reviewed: Yes Eye Exam: Normal Eyes: Positive: Conjunctiva Clear Neck exam: Normal Neck: Positive: Supple Respiratory: Positive: No respiratory distress Musculoskeletal: Positive: Other: - Left ankle and foot are swollen and tender to palpation. The tenderness is worst on the lateral aspect of the ankle and foot. There is no streaking. Mild erythema it's mildly warmer than the right foot. He has full range of motion normal capillary refill normal pulses. His left calf is also mildly swollen comparison to his right calf. No calf tenderness in either either calf. Right great toe is mildly swollen and tender to palpation. No erythema no skin break. It has full range of motion. Neurological Exam: Normal Neurological: Positive: Alert, Muscle Tone Normal Psychological Exam: Normal Psychological: Positive: Age Appropriate Behavior Skin Exam: Normal Lower Extremity Course/Dx - Course Course Of Treatment: Order Information: VL LOWER EXT VEINS LEFT. Accession Number: [id number]. CPT: 28751. INDICATION: Painful red, hot, swollen LEFT lower leg/lateral ankle. No preceding injury. COMPARISON: No relevant prior exams available on the [facility] PACS for comparison. TECHNIQUE: Ruff scale, color Doppler, and spectral analysis of the deep veins of the LEFT. lower extremity. Vessel compression, phasicity, and augmentation assessed. REPORT: The LEFT common femoral, great saphenous, profunda femoral, femoral, popliteal,. peroneal, and posterior tibial veins are patent. Patency of the RIGHT common femoral vein documented. IMPRESSION: No evidence for LEFT lower extremity deep venous thrombosis. . <Electronically signed by Ruben Solorio MD in [place]> 08/25/18 [id number]. Order Information: TOE RIGHT GREAT. Accession Number: [id number]. CPT: 66056. INDICATION: Right great toe swelling. TECHNIQUE: 3 views of the right great toe were obtained. FINDINGS: There is soft tissue swelling. No fracture is seen. No erosive change or. periosteal reaction is seen. IMPRESSION: SOFT TISSUE SWELLING, NO SPECIFIC EVIDENCE FOR OSTEOMYELITIS. IF THERE IS A. HIGH CLINICAL INDEX OF SUSPICION FOR OSTEOMYELITIS CONSIDER AN MRI STUDY WITHOUT CONTRAST. OR A THREE-PHASE BONE SCAN. . <Electronically signed by Titi Menendez MD in [place]> 08/25 1415. Order Information: FOOT LEFT 3+ VWS. Accession Number: [id number]. CPT: 28377. INDICATION: Left foot pain and swelling. TECHNIQUE: 3 views of the left foot were obtained. FINDINGS: There is diffuse soft tissue swelling. No fracture is seen. No periosteal. reaction or erosive changes are noted. IMPRESSION: SOFT TISSUE SWELLING, NO SPECIFIC EVIDENCE FOR OSTEOMYELITIS. IF THERE IS A. HIGH CLINICAL INDEX OF SUSPICION FOR OSTEOMYELITIS CONSIDER AN MRI STUDY WITHOUT CONTRAST. OR A THREE-PHASE BONE SCAN. . <Electronically signed by Titi Menendez MD in [place]> 08/25/18 1413. Order Information: ANKLE LEFT 3+VWS. Accession Number : [id number]. CPT: 23580. INDICATION: Left ankle pain and swelling. TECHNIQUE: 3 views of the left ankle were obtained. FINDINGS: There is diffuse soft tissue swelling. The bones are in normal alignment. No. fracture is seen. No erosive changes or periosteal reaction is noted. Joint spaces appear. maintained. IMPRESSION: SOFT TISSUE SWELLING. . <Electronically signed by Titi Menendez MD in [place]> 08/25/18 1412. I discussed the x-ray and ultrasound results with the patient and his . No DVT seen. Examination and history does not appear to be osteomyelitis or any sort of infection. The edema is not bilateral. At this time we'll treat for ankle and foot sprain tendinitis. Sinus to follow-up with his primary care doctor and get a reevaluation if his condition worsens or does not improve. - Differential Dx/Diagnosis Provider Diagnosis: Sprain of left foot, Leg edema, left, Pain of right great toe Discharge - Sign-Out/Discharge Documenting (check all that apply): Patient Departure All imaging exams completed and their final reports reviewed: Yes - Discharge Plan Condition: Stable Disposition: HOME Patient Education Materials: Ankle Sprain (ED), Foot Sprain (ED), Leg Edema (ED ) Referrals: Marianela Botello MD [Primary Care Provider] - Additional Instructions: FOLLOW UP WITH YOUR DOCTOR. ICE AND ELEVATE YOUR LEFT ANKLE AND FOOT. USE A WALKER TO HELP REST YOUR ANKLE AND FOOT. YOU CAN TAKE IBUPROFEN 600MG THREE TIMES A DAY. GET RECHECKED FOR ANY WORSENING OF YOUR CONDITION; PAIN, SIGNS OF INFECTION, SHORTNESS OF BREATH OR QUESTIONS OR CONCERNS. - Billing Disposition and Condition Condition: STABLE Disposition: Home
== END 2018-08-25 15:07 | disposition home or self-care (01) ==
LOC: UCEAST 12:51
DX: S93.602A Unspecified sprain of left foot, initial encounter (principal); R60.0 Localized edema; M79.674 Pain in right toe(s); X58.XXXA Exposure to other specified factors, initial encounter; Y92.9 Unspecified place or not applicable
CPT/HCPCS: 99213; G0463

== ENCOUNTER 2019-08-03 13:04 | Emergency (ER) | payer MEDICARE ==
--- OUTSIDE RECORDS SUMMARY | 2019-08-03 13:14 | XMS REPORT | Continuity of Care Document ---
:1935 External Reference #:[id number] Author Name Lucas Chao M.D. 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 Onset: 02/10/2016 Degeneration of lumbar intervertebral disc Isaiah Gage M.D. Onset: 2015 Amnesia Lucas Chao M.D. Onset: 06/17/2017 Hypersomnia Lucas Chao M.D. Onset: 06/17/2017 Contusion of knee Mable Guzman MD Onset: 07/18/2018 Knee joint effusion Mable Guzman MD Onset: 07/18/2018 Social History Type Date Description Comments Sex Unknown Tobacco Use Start: Unknown End: Former Cigarette Smoker Unknown Smoking Status Reviewed: 07/06/19 Former Cigarette Smoker ETOH Use Denies alcohol use special occasion, 2-3 x year Tobacco Use Start: Unknown End: Patient is a former smoked in early Unknown smoker 20's for a short period Recreational Drug Use Denies Drug Use Exercise Type/Frequency Does not exercise Allergies, Adverse Reactions, Alerts Description No Known Drug Allergies Medications Active Medications SIG Qnty Indications Ordering Provider Date Memantine HCL 1 tab by mouth 60tabs Lucas Chao, 12/20/2017 10mg twice a day.. M.D. Tablets Donepezil HCL take 1 pill by 30tabs R41.1 Lucas Chao, 07/18/2017 10mg mouth in in the M.D. Tablets morning Citalopram 1 by mouth every Unknown Hydrobromide day 40mg Tablets Aspir-Low 1 by mouth every Unknown 81mg day Tablets Finasteride 1 by mouth every Unknown 5mg day Tablets Vitamin B-12 inject 1000 mcg Unknown every month for 1000mcg/15ML Liquid 3 months...cant remember last injections.. Vitamin D 1 by mouth every Unknown 2000Unit day Capsules Medications Administered in Office Medication SIG Qnty Indications Ordering Provider Date Technetium TC 99M [facility] Schedule 03/29/2017 Tetrofosmin, Per Unit Dose Up To 40 Millicuries Injection Inj, Regadenoson, 0.1 MG Kelvin Gore, DO [facility] 03/27/2017 Injection Technetium TC 99M Kelvin Gore, DO [facility] 03/27/2017 Tetrofosmin, Per Unit Dose Up To 40 Millicuries Injection Depomedrol 40MG Tomas Washburn M.D. 02/01/2012 Injection Immunizations Description No Information Available Vital Signs Date Vital Result Comment 07/06/2019 2:49pm Height 66 inches 5'6" Weight 264.00 lb Heart Rate 66 /min BP Systolic 142 mmHg BP Diastolic 72 mmHg BMI (Body Mass Index) 42.6 kg/m2 11/13/2018 10:23am Height 66 inches 5'6" Weight 259.00 lb Heart Rate 60 /min BP Systolic 140 mmHg BP Diastolic 64 mmHg BMI (Body Mass Index) 41.8 kg/m2 Results Description No Information Available Procedures Description No Information Available Medical Devices Description No Information Available Encounters Description No Information Available Assessments Date Code Description Provider 07/06/2019 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 Plan of Treatment Future Appointment(s):01/08/2020 10:15 am - Lucas Ch[facility] M.D. at [facility]07/06/2019 - Lucas Chao M.D.R41.1 Anterograde amnesiaFollow up:Follow up in 6 monthsRecommendations:Make sure you take your medications as directed. Functional Status Description No Information Available Mental Status Description No Information Available Referrals Description No Information Available
[2019-08-03 13:18] VITALS: BP 173/75
--- NOTE | 2019-08-03 13:40 | UC ---
FLU HPI - HPI Summary HPI Summary: 83 yo man presents with indefinite period of malaise, could be as long as 2 months, with notable changes in the past 2 days, including increased nausea without vomiting, and abdominal pain. He might be more distended in his abdomen. He has aches and a headache, but no cough. Appetite decreased x 2 days , and he has not eaten much for the past 24 hours. He has increased left knee pain for the past 2 days, which is attributed to increased walking on 08/01. Denies a hx of OA, no recent trauma or falls. Past hx of dementia, on donepazil and namenda for the past year. Hx of BPH and is followed by urology; diabetes reported although he is not on medications. 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 - here with his , who provides details of story Onset/Duration: Gradual Onset, Lasting Weeks Severity Currently: Moderate Severity Initially: Moderate Pain Intensity: 5 Associated Signs & Symptoms: Positive: Myalgia, Headache - Risk Factors Influenza Risk Factors: Age 65 y/o or Older - Allergy/Home Medications Allergies/Adverse Reactions: Allergies Allergy/AdvReac Type Severity Reaction Status Date / Time No Known Allergies Allergy Verified 08/03/19 13:18 PMH/Surg Hx/FS Hx/Imm Hx - Additional Past Medical History Additional PMH: obese Endocrine History: Diabetes Neurological History: Dementia Other History Of: Negative For: HIV, Hepatitis B, Hepatitis C, Anticoagulant Therapy - Surgical History Surgical History: Yes Surgery Procedure, Year, and Place: tonsils and adenoids; inguinal hernia - Family History Known Family History: Positive: Diabetes Negative: Cardiac Disease, Hypertension - Social History Occupation: Retired Lives: With Family Alcohol Use: Occasionally Substance Use Type: None Smoking Status (MU): Never Smoked Tobacco Have You Smoked in the Last Year: No Review of Systems All Other Systems Reviewed And Are Negative: Yes Constitutional: Positive: Chills, Fatigue Skin: Positive: Negative Eyes: Positive: Negative ENT: Positive: Negative Respiratory: Positive: Negative Cardiovascular: Positive: Negative Gastrointestinal: Positive: Abdominal Pain - initially states in RLQ, Nausea Motor: Positive: Decreased ROM - left knee Musculoskeletal: Positive: Arthralgia, Edema Neurological: Positive: Weakness Psychological: Positive: Negative Is Patient Immunocompromised?: No Physical Exam Triage Information Reviewed: Yes Appearance: Ill-Appearing - Elderly man, looks unkempt, and he has a poor recall of details, Pain Distress - mild, Obese, Other: - No jaundice Vital Signs: Initial Vital Signs Temp 97.4 F 08/03/19 13:16 Pulse 67 08/03/19 13:16 Resp 17 08/03/19 13:16 BP 173/75 08/03/19 13:16 Pulse Ox 96 08/03/19 13:16 ENT: Positive: Normal ENT inspection, Pharynx normal, TMs normal Neck: Positive: Supple, Nontender, No Lymphadenopathy Respiratory: Positive: Lungs clear, Normal breath sounds Cardiovascular: Positive: RRR, No Murmur Abdomen Description: Positive: Soft, Distended, Guarding - + guarding with palpation of the RUQ.. Negative: CVA Tenderness (R), CVA Tenderness (L) Bowel Sounds: Positive: Hypoactive Musculoskeletal Exam: Other - Antalgic gait Musculoskeletal: Positive: ROM Limited @ - left knee with small effusion, no eythema or warmth, TTP of patella and joint line. Neurological Exam: Other - Alert, Skin Exam: Normal - no jaundice or rashes. Diagnostics - Laboratory Lab Results: Flu negative, UA with + bili, fingerstick glucose 154. Flu Course/Dx - Course Course Of Treatment: Discussed possible gallbladder disease given RUQ pain, nausea and progressive malaise. Advised ER assesment due to progressive symptoms and need for investigation not available at [facility]. They have elected to go by private care for evaluation. - Differential Dx/Diagnosis Differential Diagnosis/HQI/PQRI: Other - gallbladder disease, possible ascites, liver disease. Provider Diagnosis: Right upper quadrant abdominal pain - Physician Notifications Discussed Patient Care With: Concepcion charge nurse in ER Time Discussed With Above Provider: 14:05 Discharge ED - Sign-Out/Discharge Documenting (check all that apply): Patient Departure All imaging exams completed and their final reports reviewed: No Studies - Discharge Plan Condition: Stable Disposition: TRANS HIGHER [facility] F[facility] Patient Education Materials: Abdominal Pain (ED) Referrals: Marianela Botello MD [Primary Care Provider] - Additional Instructions: Beccause of the progression of symptoms, and the need for more testing, please proceed directly to the emergency room for assessment. - Billing Disposition and Condition Condition: STABLE Disposition: Trans Higher Lvl of Care Fac
[2019-08-03 13:44] LABS: Influenza A Molecular NEGATIVE (Negative); Influenza B Molecular NEGATIVE (Negative)
== END 2019-08-03 14:24 | disposition short-term general hospital (02) ==
LOC: UCEAST 13:04
DX: R10.11 Right upper quadrant pain (principal); R53.81 Other malaise; R11.0 Nausea; R51 Headache; M25.562 Pain in left knee; M25.462 Effusion, left knee; E11.9 Type 2 diabetes mellitus without complications
CPT/HCPCS: 81003; 99212; G0463

== ENCOUNTER 2019-08-03 14:45 | Observation (INO) | payer MEDICARE ==
[2019-08-03] MEDS ORDERED: Ondansetron INJ* 2 MG/ML VIAL IV ONE (17:54)
[2019-08-03] MEDS ORDERED: NS 0.9% 1000 ML** 1,000 ML IV ONE (17:54)
--- NOTE | 2019-08-03 17:55 | ED ---
Abdominal Pain/Male - HPI Summary HPI Summary: Per Family patient complains of right upper quadrant pain months, worsening over the past 3 days with associated nausea, and decreased by mouth intake. Also complains of left knee pain status post 3 days after falling on it. Denies any other pain, injury or symptoms. Patient has history of dementia and is not a good historian. Denies active pain at this time. Family and patient deny fever, cough, sore throat, CP, SOB, V/D, change in urine, change in BM, testicular or penile symptoms. Ankle history is DM, bradycardia. Abdominal surgical history is hernia repair many many years ago. Former smoker, quit 35 years ago. - History of Current Complaint Chief Complaint: EDAbdPain Stated Complaint: GENERAL ILLNESS PER PT Time Seen by Provider: 08/03/19 17:52 Hx Obtained From: Patient Onset/Duration: Gradual Onset, Lasting Weeks Timing: Intermittent, Lasting Hours Severity Initially: Mild Severity Currently: Mild Pain Intensity: 3 Pain Scale Used: 0-10 Numeric Location: Discrete At: RUQ Radiates: No Character: Sharp, Dull, Colicy Aggravating Factor(s): Food Associated Signs And Symptoms: Positive: Decreased Appetite, Nausea - Allergies/Home Medications Allergies/Adverse Reactions: Allergies Allergy/AdvReac Type Severity Reaction Status Date / Time No Known Allergies Allergy Verified 08/03/19 14:55 Home Medications: Home Medications Donepezil TAB* [Aricept 5 MG TAB*] 10 mg PO QAM 08/03/19 [History Confirmed ] Finasteride TAB* [Proscar TAB*] 5 mg PO DAILY 08/03/19 [History Confirmed ] Memantine TAB* [Namenda TAB*] 10 mg PO BID 08/03/19 [History Confirmed 08/03/19] PMH/Surg Hx/FS Hx/Imm Hx Endocrine/Hematology History: Reports: Hx Diabetes - boarderline Denies: Hx Anticoagulant Therapy, Hx Thyroid Disease Cardiovascular History: Denies: Hx Congestive Heart Failure, Hx Deep Vein Thrombosis, Hx Hypertension , Hx Myocardial Infarction, Hx Pacemaker/ICD Respiratory History: Denies: Hx Asthma, Hx Chronic Obstructive Pulmonary Disease (COPD), Hx Lung Cancer, Hx Pneumonia, Hx Pulmonary Embolism GI History: Denies: Hx Gall Bladder Disease, Hx Gastrointestinal Bleed, Hx Ulcer, Hx Urosepsis History: Denies: Hx Kidney Stones, Hx Renal Disease Musculoskeletal History: Denies: Hx Rheumatoid Arthritis, Hx Osteoporosis Sensory History: Denies: Hx Eye Prosthesis, Hx Hearing Aid Opthamlomology History: Denies: Hx Legally Blind EENT History: Denies: Hx Deafness Neurological History: Denies: Hx Dementia, Hx Migraine, Hx Seizures, Hx Transient Ischemic Attacks (TIA) Psychiatric History: Reports: Hx Depression Denies: Hx Anxiety, Hx Panic Disorder, Hx Schizophrenia, Hx Bipolar Disorder - Surgical History Surgery Procedure, Year, and Place: tonsils and adenoids; inguinal hernia Infectious Disease History: No Infectious Disease History: Denies: Hx Clostridium Difficile, Hx Hepatitis, Hx Human Immunodeficiency Virus (HIV), Hx of Known/Suspected MRSA, Hx Shingles, Hx Tuberculosis, Hx Known/ Suspected VRE, Hx Known/Suspected VRSA, History Other Infectious Disease, Traveled Outside the in Last 30 Days - Family History Known Family History: Positive: None, Diabetes Negative: Cardiac Disease, Hypertension - Social History Alcohol Use: Occasionally Hx Substance Use: No Substance Use Type: Reports: None Hx Tobacco Use: No Smoking Status (MU): Never Smoked Tobacco Have You Smoked in the Last Year: No Review of Systems Constitutional: Negative Eyes: Negative ENT: Negative Cardiovascular: Negative Respiratory: Negative Positive: Abdominal Pain, Nausea Genitourinary: Negative Musculoskeletal: Other Skin: Negative Neurological: Negative Psychological: Normal All Other Systems Reviewed And Are Negative: Yes Physical Exam Triage Information Reviewed: Yes Vital Signs On Initial Exam: Initial Vitals Temp Pulse Resp BP Pulse Ox 98.1 F 59 20 175/72 97 08/03/19 14:50 08/03/19 14:50 08/03/19 14:50 08/03/19 14:50 08/03/19 14:50 Vital Signs Reviewed: Yes Appearance: Positive: Well-Appearing Skin: Positive: Warm Head/Face: Positive: Normal Head/Face Inspection Eyes: Positive: Normal Neck: Positive: Supple Respiratory/Lung Sounds: Positive: Clear to Auscultation Cardiovascular: Positive: Normal Abdomen Description: Positive: Other: - Right upper quadrant pain with palpation. Abdominal exam otherwise unremarkable. Musculoskeletal: Positive: Normal Neurological: Positive: Normal Psychiatric: Positive: Normal AVPU Assessment: Alert - [place] Coma Scale Best Eye Response: 4 - Spontaneous Best Motor Response: 6 - Obeys Commands Best Verbal Response: 5 - Oriented Coma Scale Total: 15 Procedures - Sedation Patient Received Moderate/Deep Sedation with Procedure: No Diagnostics - Vital Signs Vital Signs Temp Pulse Resp BP Pulse Ox 08/03/19 16:45 98.1 F 61 19 171/61 96 08/03/19 14:50 98.1 F 59 20 175/72 97 - Laboratory Result Diagrams: 08/03/19 22:09 08/03/19 18:04 Lab Statement: Any lab studies that have been ordered have been reviewed, and results considered in the medical decision making process. Abdominal Pain Male Course/Dx - Course Course Of Treatment: Per Family patient complains of right upper quadrant pain months, worsening over the past 3 days with associated nausea, and decreased by mouth intake. Also complains of left knee pain status post 3 days after falling on it. Denies any other pain, injury or symptoms. Patient has history of dementia and is not a good historian. Denies active pain at this time. Family and patient deny fever, cough, sore throat, CP, SOB, V/D, change in urine , change in BM, testicular or penile symptoms. Ankle history is DM, bradycardia. Abdominal surgical history is hernia repair many many years ago. Former smoker, quit 35 years ago. Patient bradycardic with history of same. O2 sats dropping to 88% on room air. Patient placed on oxygen at 2 L satting at 94%. Vital signs otherwise within normal limits. WBC 14.3. Lactic 3.3. CRP 27.62. Potassium 3.2. Labs otherwise unremarkable. Chest x-ray unremarkable. EKG sinus bradycardia, heart rate 59, normal P axis. Ultrasound gallbladder positive for cholelithiasis without Colee cystitis. CT abdomen and pelvis positive for cholelithiasis without other acute process. X-ray right knee negative for fracture. Discussed patient with hospitalist. Hypoxia and Elevated white count and elevated lactic without source of infection. Hospitalist agrees to admit. - Diagnoses Provider Diagnoses: Hypoxia, Abdominal pain, Knee pain Discharge ED - Sign-Out/Discharge Documenting (check all that apply): Patient Departure - Discharge Plan Condition: Stable Disposition: ADMITTED TO [facility] Referrals: Marianela Botello MD [Primary Care Provider] - - Billing Disposition and Condition Condition: STABLE Disposition: Admitted to [facility]
[2019-08-03 18:19] LABS: ABS Basophils 0.1 10^3/ul (0-0.2); ABS Eosinophils 0.1 10^3/ul (0-0.6); ABS Lymphocytes 1.3 10^3/ul (1.0-4.8); ABS Monocytes 0.8 10^3/ul (0-0.8); ABS Neutrophils 12.1 10^3/ul (1.5-7.7); Eosinophil % 0.6 %; Hematocrit 43 % (42-52); Hemoglobin 14.9 g/dL (14.0-18.0); Mean Corpuscular HGB Conc 35 g/dL (31-36); Mean Corpuscular Hemoglobin 32 pg (27-31); Mean Corpuscular Volume 93 fL (80-94); Mean Platelet Volume 6.9 fL (7.4-10.4); Platelet Count 350 10^3/uL (150-450); Red Blood Count 4.64 10^6 /uL (4.18-5.48); Red Cell Distribution Width 14 % (10-15); White Blood Count 14.3 10^3/uL (3.5-10.8)
[2019-08-03 18:39] LABS: ALT 23 U/L (7-52); AST 22 U/L (13-39); Albumin 3.8 g/dL (3.2-5.2); Albumin/Globulin Ratio 1.1 (1-3); Alkaline Phosphatase 61 U/L (34-104); Anion Gap 8 mmol/L (2-11); BUN/Creatinine Ratio 15.2 (8-20); Blood Urea Nitrogen 12 mg/dL (6-24); C Reactive Protein 27.62 mg/L (<8.01); CO2 Carbon Dioxide 30 mmol/L (22-32); Calcium 9.2 mg/dL (8.6-10.3); Chloride 100 mmol/L (101-111); EGFR African American 113.9 (>60); EGFR Non-African American 94.1 (>60); Globulin 3.4 g/dL (2-4); Glucose 194 mg/dL (70-100); Potassium 3.2 mmol/L (3.5-5.0); Sodium 138 mmol/L (135-145); Total Protein 7.2 g/dL (6.4-8.9)
[2019-08-03 18:40] LABS: Troponin I 0.02 ng/mL (<0.03)
[2019-08-03] MEDS ORDERED: Iodixanol* (CONTRAST) 320 MG/ML 100 ML SDV IV ONE (18:57)
[2019-08-03 21:01] LABS: Urine Appearance Cloudy; Urine Bilirubin Negative (Negative); Urine Blood Negative (Negative); Urine Color Yellow; Urine Glucose Negative (Negative); Urine Ketones Negative (Negative); Urine Nitrite Negative (Negative); Urine Protein 1+(30 mg/dL) (Negative); Urine Specific Gravity 1.044 (1.010-1.030); Urine Urobilinogen Negative (Negative)
[2019-08-03 21:08] LABS: Urine Bacteria Absent (Absent); Urine Red Blood Cell 2+(6-10/hpf) (Absent); Urine White Blood Cell Absent (Absent)
[2019-08-03] MEDS: NS 0.9% 1000 ML** 1,000 ML IV SCH (21:59)
[2019-08-03 22:15] LABS: ABS Basophils 0.1 10^3/ul (0-0.2); ABS Eosinophils 0.2 10^3/ul (0-0.6); ABS Lymphocytes 1.9 10^3/ul (1.0-4.8); ABS Monocytes 0.9 10^3/ul (0-0.8); ABS Neutrophils 10.6 10^3/ul (1.5-7.7); Eosinophil % 1.2 %; Hematocrit 41 % (42-52); Hemoglobin 14.2 g/dL (14.0-18.0); Lymphocyte % 13.6 %; Mean Corpuscular HGB Conc 35 g/dL (31-36); Mean Corpuscular Hemoglobin 33 pg (27-31); Mean Corpuscular Volume 93 fL (80-94); Mean Platelet Volume 6.9 fL (7.4-10.4); Platelet Count 303 10^3/uL (150-450); Red Blood Count 4.37 10^6 /uL (4.18-5.48); Red Cell Distribution Width 14 % (10-15); White Blood Count 13.6 10^3/uL (3.5-10.8)
[2019-08-03] MEDS ORDERED: Potassium Chlor TAB* 20 MEQ TAB.ER PO ONE (22:38)
[2019-08-03 23:54] LABS: Influenza A Molecular NEGATIVE (Negative); Influenza B Molecular NEGATIVE (Negative)
[2019-08-04] MEDS ORDERED: Enoxaparin(*) 150 MG/ML 1 ML SYRINGE SUBCUT SCH (01:00)
[2019-08-04] MEDS: NS 0.9% 1000 ML** 1,000 ML IV SCH ×3 (03:36→20:10)
[2019-08-04] MEDS: Enoxaparin(*) 150 MG/ML 1 ML SYRINGE SUBCUT SCH ×2 (04:10→15:55)
[2019-08-04 07:17] LABS: BUN/Creatinine Ratio 12.3 (8-20); Calcium 8.6 mg/dL (8.6-10.3); EGFR African American 124.8 (>60); EGFR Non-African American 103.1 (>60); Potassium 3.4 mmol/L (3.5-5.0)
[2019-08-04] MEDS: Aspirin 81 mg CHEW TAB* 81 MG TAB.CHEW PO SCH (09:01)
[2019-08-04] MEDS: Citalopram TAB* 20 MG PO SCH (09:01)
[2019-08-04] MEDS: Finasteride TAB* 5 MG PO SCH (09:01)
[2019-08-04] MEDS: Donepezil TAB* 5 MG PO SCH (09:01)
[2019-08-04] MEDS: Memantine TAB* 10 MG PO SCH ×2 (09:01→21:03)
[2019-08-04] MEDS: Cholecalciferol TAB* 1000 UNITS PO SCH (09:02)
--- NOTE | 2019-08-04 09:28 | HP ---
CC: Dr. Marianela Botello * ADMISSION HISTORY AND PHYSICAL: DATE OF ADMISSION: 08/04/19 CHIEF COMPLAINT: Fatigue. HISTORY OF PRESENT ILLNESS: Mr. Taveras is an 83-year-old man with dementia, who was brought in by his family after having days of fatigue and low appetite. He also has complained of right upper quadrant pain in the last several weeks , but worse in the last week. The family also reported that he fell 3 days prior to the admission and injured his left knee. The patient is a poor historian, but he denies cough, shortness of breath, abdominal pain or chest pain. He denies fever. He denies any history of lung problems and denies history of home O2 use. PAST MEDICAL HISTORY: Includes borderline diabetes, dementia, benign prostatic hypertrophy. PAST SURGICAL HISTORY: The patient denies. MEDICATIONS ON ADMISSION: 1. Aspirin 81 mg p.o. daily. 2. Cholecalciferol 2000 units p.o. daily. 3. Citalopram 40 mg p.o. q.a.m. 4. Vitamin B12 injection 1000 mcg IM monthly. 5. Donepezil 10 mg p.o. q.a.m. 6. Finasteride 5 mg p.o. daily. 7. Namenda 10 mg p.o. b.i.d. ALLERGIES: None. FAMILY HISTORY: Notable for father with diabetes. Mother of ovarian cancer. Sister also of ovarian cancer he states. SOCIAL HISTORY: He is a retired printer. He is . He has 5 kids. He lives with his and his son lives in another part of the house with his family. He quit tobacco in his 30s. Drinks alcohol rarely. No recreational drugs. REVIEW OF SYSTEMS: The patient denies any fevers or weight loss, but he has had some anorexia. The patient denies any chest pain or palpitation. The patient denies any cough or shortness of breath. The remainder of the 14 point review of systems negative other than mentioned in HPI. PHYSICAL EXAMINATION GENERAL: He is obese man in no acute distress. VITAL SIGNS: Temperature 36.7, pulse 71, respirations 16, blood pressure is 104 /56, oxygen saturation is 90% on 2 L. HEENT: Head is normocephalic atraumatic. Sclerae anicteric. Pupils are equal , round and reactive to light and accommodation. Oropharynx is moist. No lesions. NECK: No JVD. No carotid bruit. No thyromegaly. LUNGS: Clear to auscultation and percussion bilaterally. HEART: Irregular. No murmurs or gallops. ABDOMEN: Obese, soft, nontender. Positive bowel sounds noted. No hepatosplenomegaly. EXTREMITIES: Trace lower extremity edema bilaterally. NEUROLOGIC: Cranial nerves II through XII were intact. Motor strength is 5/5 throughout. Deep tendon reflexes symmetric. He is alert and oriented to self. He knows this is July 2019, but does not know the day or date, and does not know the location. SKIN: No rashes. DIAGNOSTIC STUDIES/LAB DATA: Sodium 138, potassium 3.2, chloride 100, bicarb 30, BUN 12, creatinine 0.79, glucose 194, calcium 9.2, AST 22, ALT 23, lipase less than 10. CRP 27, lactic acid 3.3, which fell to 1.5. In the ER, troponin was 0.02, it fell to 0.01 and repeat white count is 14.3, hemoglobin 14.9, hematocrit 43%, platelets 350. Influenza swab was negative for flu A and B. EKG shows sinus bradycardia, low voltages throughout, few PACs, QT prolongation is present. Chest x-ray is negative for infiltrates or effusions. Ultrasound of the gallbladder shows cholelithiasis. CT abdomen and pelvis shows cholelithiasis as well without any gallbladder wall thickening or pericholecystic fluid. ASSESSMENT AND PLAN: This 83-year-old man presenting with vague systemic symptoms and hypoxia requiring oxygen supplementation newly. Differential of this new-onset hypoxia with normal chest x-ray would include a pulmonary embolus , viral pneumonitis, chronic obstructive pulmonary disease, which is undiagnosed or may be sleep apnea or obesity hypoventilation syndrome. I will check a D-dimer here in the ER and order a CT angiogram of the chest tomorrow if it is positive. For now we will keep him on Lovenox at full dose until the PE question is clarified. His lactic acidosis is not clearly related to severe infection. He may have been somewhat dehydrated and this cleared up with hydration in the ER. No further workup is intended. Cholelithiasis appears asymptomatic at this time. He can be observed after eating here in the hospital to see if he has need for elective cholecystectomy as an outpatient. For his borderline diabetes we will follow his fingerstick blood glucose and give him as needed Humalog if indicated. Code status is full. DVT prophylaxis, he will be on full 1 mg/kg Lovenox dose for now because of possible PE. [id number]/[facility] #: [id number] MTDD
--- NOTE | 2019-08-04 16:04 | PN ---
Progress Note - Progress Note Date of Service: 08/04/19 Note: Pt is feeling much better. No further nausea or abdominal pain. He states his breathing is comfortable. He has not been coughing. Plan is to obtain CTA chest tonight and if negative he can go home tomorrow. Check O2 sat on RA to determine if he is still hypoxic. Also checking HbA1c given elevated blood sugars.
[2019-08-04] MEDS ORDERED: Iodixanol* (CONTRAST) 320 MG/ML 100 ML SDV IV ONE (19:31)
[2019-08-05] MEDS: NS 0.9% 1000 ML** 1,000 ML IV SCH (04:14)
[2019-08-05] MEDS: Enoxaparin(*) 150 MG/ML 1 ML SYRINGE SUBCUT SCH (04:14)
[2019-08-05] MEDS ORDERED: Enoxaparin(*) 150 MG/ML 1 ML SYRINGE SUBCUT SCH (09:36)
[2019-08-05] MEDS: Finasteride TAB* 5 MG PO SCH (10:06)
[2019-08-05] MEDS: Donepezil TAB* 5 MG PO SCH (10:06)
[2019-08-05] MEDS: Cholecalciferol TAB* 1000 UNITS PO SCH (10:06)
[2019-08-05] MEDS: Memantine TAB* 10 MG PO SCH ×2 (10:06→21:17)
[2019-08-05] MEDS: Citalopram TAB* 20 MG PO SCH (10:07)
[2019-08-05] MEDS: Aspirin 81 mg CHEW TAB* 81 MG TAB.CHEW PO SCH (10:07)
--- NOTE | 2019-08-05 15:01 | PN ---
Subjective Date of Service: 08/05/19 Interval History: Mr. Taveras states he is feeling "OK" today. He denies cough, fever, chills, SOB, but does note BROUSSARD. He denies abdominal pain, n/v/d, GERD. He does have occasional abd pain that he feels is associated with eating. He c/o decreased appetite, bloating. He continues to have L knee pain. No other complaints today. Objective Active Medications: Aspirin (Aspirin 81 Mg Chew Tab*) 81 mg PO DAILY [facility] Last Admin: 08/05/19 10:07 Dose: 81 mg Cholecalciferol (Vitamin D Tab*) 2,000 units PO DAILY [facility] Last Admin: 08/05/19 10:06 Dose: 2,000 units Citalopram Hydrobromide (Celexa Tab*) 20 mg PO DAILY [facility] Last Admin: 08/05/19 10:07 Dose: 20 mg Donepezil HCl (Aricept Tab*) 10 mg PO QAM [facility] Last Admin: 08/05/19 10:06 Dose: 10 mg Enoxaparin Sodium (Lovenox(*)) 120 mg SUBCUT Q12H [facility] Last Admin: 08/05/19 10:32 Dose: 120 mg Finasteride (Proscar Tab*) 5 mg PO DAILY [facility] Last Admin: 08/05/19 10:06 Dose: 5 mg Sodium Chloride (Ns 0.9% 1000 Ml) 1,000 mls @ 150 mls/hr IV PER RATE [facility] Last Admin: 08/05/19 04:14 Dose: 150 mls/hr Memantine (Namenda Tab*) 10 mg PO BID [facility] Last Admin: 08/05/19 10:06 Dose: 10 mg Vital Signs: Temp Pulse Resp BP Pulse Ox 98.1 F 64 20 144/60 93 08/05/19 11:15 08/05/19 11:15 08/05/19 11:15 08/05/19 11:15 08/05/19 14:08 Oxygen Devices in Use Now: Nasal Cannula Appearance: Mr. Taveras is an obese older white male who is sitting up in bed. He is breathing comfortably on room air and appears to be in no acute distress. Eyes: No Scleral Icterus, PERRLA Ears/Nose/Mouth/Throat: NL Teeth, Lips, Gums, Clear Oropharnyx, Mucous Membranes Moist Neck: NL Appearance and Movements; NL JVP, Trachea Midline Respiratory: Symmetrical Chest Expansion and Respiratory Effort, Clear to Auscultation Cardiovascular: NL Sounds; No Murmurs; No JVD, RRR, No Edema Abdominal: No Hepatosplenomegaly, - - Obese. BS in all quadrants. Mildly TTP at RUQ, LLQ; Be's sign negative; without appendiceal signs Extremities: No Edema, No Clubbing, Cyanosis Neurological: Alert and Oriented x 3, - - intermittent mild confusion Result Diagrams: 08/03/19 22:09 08/04/19 06:53 Microbiology and Other Data: Microbiology 08/03/19 19:19 Aerobic Blood Culture - Preliminary Blood Venous No Growth Day 1 Anaerobic Blood Culture - Preliminary No Growth Day 1 08/03/19 19:19 Aerobic Blood Culture - Preliminary Blood Venous No Growth Day 1 Assess/Plan/Problems-Billing Assessment: 83 yom PMHx dementia, BPH presents with hypoxia. - Patient Problems (1) Acute respiratory failure with hypoxia Comment: -pt presented with hypoxia requiring O2 -no longer on O2 at rest, but c/o BROUSSARD with desat to 80's with ambulation -CXR unremarkable; denies cough, fever, chills -CTA chest negative for PE -no h/o tobacco use or exposure -Echo ordered for SOB/BROUSSARD (2) Biliary colic Comment: -intermittent RUQ pain often associated with eating -CT abd/pel, US shows cholelithiasis without cholecystitis -continue to monitor -recommend outpatient follow up with PCP for possible elective cholecystectomy (3) Diabetes mellitus, type II Comment: -HA1c 7.5 -pt requests trial of diet/exercise for 3 months and will follow with PCP regarding further management (4) Dementia Comment: -continue donepezil, memantine -supportive care (5) BPH (benign prostatic hyperplasia) Comment: -finasteride (6) DVT prophylaxis Comment: -lovenox (decrease from treatment to prophylactic dose) (7) Full code status Status and Disposition: Observation. Discharge when stable.
[2019-08-05] MEDS ORDERED: Perflutren Lipid Microsphere* 3 ML VIAL ONE (16:03)
--- NOTE | 2019-08-05 16:59 | ECHO ---
*[facility]* [place] [address] Fax #: [phone] Transthoracic Echocardiogram Patient: Antonio Taveras : 1935 Study Date: 08/05/2019 Age: 83 Gender: M HR: 86 bpm Height: 66 in /167.6 cm BSA: 2.26 m^2 Weight: 266.4 lb /121.1 kg BMI: 43.1 kg/m^2 *Motor Vehicle Emissions Inspector: Danika Chanel *Referring Physician: * Domitila PascualReading Physician: * Deedee Dejesus MD Indications: SOB. History: Dyspnea. Coronary artery disease. Risk factors: Diabetes mellitus. Conclusions Summary: - Left ventricle: The cavity size is normal. Wall thickness is mildly increased. Systolic function is at the lower limits of normal. The estimated ejection fraction is 50-55%. The endocardium is not well visualized. No obvious WMA. - Mitral valve: There is trace regurgitation. - Tricuspid valve: There is trace to mild regurgitation. - Pulmonary arteries: Systolic pressure is moderately increased, estimated to be 47 mm Hg. - No previous echocardiogram available. Study data: Transthoracic echocardiogram. Procedure: Transthoracic echocardiography was performed. Image quality was suboptimal. Intravenous Definity , 2 mlswas administered. Complete 2D, spectral Doppler, and color flow Doppler. Location: Bedside. Patient status: Inpatient. Patient room number: 437. Findings Left ventricle: The cavity size is normal. Wall thickness is mildly increased. Systolic function is at the lower limits of normal. The estimated ejection fraction is 50-55%. Left ventricular diastolic function parameters are normal. Right ventricle: The cavity size is mildly dilated. Systolic function is normal. Left atrium: The atrium is normal in size. Right atrium: The atrium is normal in size. Mitral valve: The valve is structurally normal. There is no evidence of stenosis. There is trace regurgitation. Aortic valve: The valve is probably trileaflet. The leaflets are normal thickness. There is no evidence of stenosis. There is no significant regurgitation. Tricuspid valve: The valve is structurally normal. There is no evidence of stenosis. There is trace to mild regurgitation. Pulmonic valve: The leaflets are normal thickness. There is no evidence of stenosis. There is no significant regurgitation. Aorta: The aortic root appears normal. The aortic arch appears normal. Pericardium: There is no significant pericardial effusion. Pulmonary arteries: Systolic pressure is moderately increased, estimated to be 47 mm Hg. Systemic veins: Inferior vena cava: The vessel is normal in size. Measurements Left ventricle Value Ref Right atrium continued Value Ref ASCENCION, LAX 4.8 cm 4.2 - SI dim, ES, 4.4 cm 3.4 - 5.3 5.8 A4C ESD, LAX 3.7 cm 2.5 - SI dim/bsa, 1.9 cm/m^2 1.8 - 3.0 4.0 ES, A4C FS, LAX (L) 24 % PW, ED, LAX (H) 1.4 cm 0.6 - Aortic valve Value Ref 1.0 Peak v, S 1.38 m/sec --------- FS (L) 24 % VTI, S 29.6 cm --------- Mid-wall FS 9 % -------- Mean grad, S 5.0 mm Hg --------- PW, ED (H) 1.4 cm 0.6 - Peak grad, S 8.0 mm Hg --------- 1.0 FIDEL, VTI 3.07 cm^2 --------- PW/ID, ED 0.3 -------- FIDEL, Vmax 2.67 cm^2 --------- E', avg, TDI 10.1 cm/sec -------- E/e', avg, TDI 9 <=14 Mitral valve Value R ef Peak E 0.94 m/sec --------- LVOT Value Ref Peak A 0.88 m/sec --------- Diam, S 2.20 cm -------- Decel time 142 ms --------- Area 3.8 cm^2 -------- Peak grad, D 3.5 mm Hg --------- Peak maximilian, S 0.97 m/sec -------- Peak E/A ratio 1.1 --------- Mean grad, S 2 mm Hg -------- SV 91 ml -------- Pulmonic valve Value Ref Peak v, S 0.69 m/sec --------- Ventricular septum Value Ref Peak grad, S 2.0 mm Hg --------- IVS, ED (H) 1.6 cm 0.6 - 1.0 Tricuspid valve Value Ref TR peak v (H) 3.25 m/sec <=2.8 Right ventricle Value Ref Peak RV-RA 42 mm Hg --------- ASCENCION, LAX 2.9 cm -------- grad, S ASCENCION minor ax, A4C (H) 4.0 cm 1.9 - Max TR maximilian 3.25 m/sec --------- mid 3.5 Aortic root Value Ref Left atrium Value Ref Root diam 3.5 cm <4.3 ML dim, A4C 4.7 cm -------- SI dim, A4C 5.5 cm -------- Ascending aorta Value Ref Vol/bsa, ES, 1-p 19 ml/m^2 12 - 37 AAo AP diam, S 3.0 cm --------- A4C AAo AP 1.3 cm/m^2 --------- Vol/bsa, ES, A/L 21 ml/m^2 16 - 34 diam/bsa, S Right atrium Value Ref SI dim, ES 4.4 cm 3.4 - 5.3 ML dim, ES, A4C 2.8 cm 2.6 - 4.4 Legend: (L) and (H) armando values outside specified reference range. Prepared and electronically signed by Deedee Dejesus MD 08/05/2019 16:58
[2019-08-05] MEDS ORDERED: Furosemide IV* 10 MG/ML VIAL (40 MG) IV ONE (18:13)
--- NOTE | 2019-08-05 18:34 | PN ---
Hospitalist Progress Note Date of Service: 08/05/19 Patient with continued SOB, now with wheezing. Discussion had with family, who state patient has a 10 year smoking history where he smoked 8-10 pipes per day. He also has h/o second hand smoke exposure. He previously worked in the [employer] business, and could have had exposure in that setting. Index of suspicion for COPD/COPD exacerbation is increased with this new information. Plan: -Lasix 40 IV now -Duonebs scheduled q4h -will hold on steroids at this time and monitor for improvement with above intervention -consider pulmonology consult in a.m. if SOB continues for questionable COPD
[2019-08-05] MEDS ORDERED: Albuterol/Ipratropium NEB.SOL* Albuterol 2.5 MG/Ipratropium 0.5 MG 3 ML INH SCH (19:00)
[2019-08-05] MEDS ORDERED: Albuterol/Ipratropium NEB.SOL* Albuterol 2.5 MG/Ipratropium 0.5 MG 3 ML INH PRN (20:22)
[2019-08-06 04:59] LABS: ABS Basophils 0.1 10^3/ul (0-0.2); ABS Eosinophils 0.2 10^3/ul (0-0.6); ABS Lymphocytes 1.3 10^3/ul (1.0-4.8); ABS Monocytes 0.7 10^3/ul (0-0.8); ABS Neutrophils 7.7 10^3/ul (1.5-7.7); Eosinophil % 1.9 %; Hematocrit 37 % (42-52); Hemoglobin 12.7 g/dL (14.0-18.0); Lymphocyte % 13.4 %; Mean Corpuscular HGB Conc 35 g/dL (31-36); Mean Corpuscular Hemoglobin 33 pg (27-31); Mean Corpuscular Volume 94 fL (80-94); Mean Platelet Volume 7.2 fL (7.4-10.4); Platelet Count 304 10^3/uL (150-450); Red Blood Count 3.89 10^6 /uL (4.18-5.48); Red Cell Distribution Width 15 % (10-15)
[2019-08-06 05:16] LABS: BUN/Creatinine Ratio 10.8 (8-20); Calcium 8.5 mg/dL (8.6-10.3); EGFR African American 107.6 (>60); EGFR Non-African American 88.9 (>60); Potassium 3.3 mmol/L (3.5-5.0)
[2019-08-06] MEDS: Donepezil TAB* 5 MG PO SCH (08:41)
[2019-08-06] MEDS: Cholecalciferol TAB* 1000 UNITS PO SCH (08:41)
[2019-08-06] MEDS: Aspirin 81 mg CHEW TAB* 81 MG TAB.CHEW PO SCH (08:41)
[2019-08-06] MEDS: Citalopram TAB* 20 MG PO SCH (08:41)
[2019-08-06] MEDS: Finasteride TAB* 5 MG PO SCH (08:41)
[2019-08-06] MEDS: Memantine TAB* 10 MG PO SCH (08:41)
[2019-08-06] MEDS ORDERED: Enoxaparin(*) 40 MG/0.4 ML SYR SUBCUT SCH (10:30)
[2019-08-06] MEDS: Potassium Chlor TAB* 20 MEQ TAB.ER PO SCH ×2 (11:39→16:28)
[2019-08-06] MEDS ORDERED: Mometasone/Formoter 200/5 MDI INH SCH (12:00)
[2019-08-06 12:48] VITALS: BP 155/61
--- NOTE | 2019-08-06 15:23 | DS ---
CC: Dr. Marianela Botello * DISCHARGE SUMMARY: DATE OF ADMISSION: 08/04/19 DATE OF DISCHARGE: 08/06/19 PRIMARY CARE PROVIDER: Dr. Marianela Botello. ATTENDING PHYSICIAN: Dr. Kvng Juarez * (dictated by LADARIUS Rodríguez). PRIMARY DIAGNOSES: 1. Acute hypoxic respiratory failure. 2. Probable chronic obstructive pulmonary disease with exacerbation. 3. Transient right upper quadrant abdominal pain, likely related to nonobstructing cholelithiasis. 4. Lactic acidosis. 5. Diabetes mellitus type 2. SECONDARY DIAGNOSES: 1. Benign prostatic hypertrophy. 2. Dementia. 3. Borderline diabetes. STUDIES WHILE IN THE HOSPITAL: 1. Abdomen and pelvis CT, impression: Cholelithiasis without other findings of cholecystitis. No other acute findings. 2. Gallbladder ultrasound, impression: Cholelithiasis without other findings of cholecystitis. Hepatic steatosis. 3. Chest x-ray 2 views, impression: Low lung volumes. No evidence for acute findings. 4. CTA chest, impression: No evidence of pulmonary embolism to the third- order branch level, but small peripheral vessels cannot be assessed due to motion artifact. Mild smooth septal thickening suggesting interstitial edema. Band-like opacity in lateral basal segment of the right lower lobe likely atelectasis. Cardiomegaly, coronary artery disease, hepatic steatosis. 5. Transthoracic echocardiogram, summary: LV cavity size normal. Wall thickness mildly increased. Systolic function lower limits of normal. Estimated EF 50% to 55%. Endocardium not well visualized. No obvious WMA. Trace MR, trace to mild TR. Pulmonary artery systolic pressure moderately increased, estimated to be 47 mmHg. DISCHARGE MEDICATIONS: Home medications: 1. Aspirin 81 mg p.o. daily. 2. Cholecalciferol 2000 units p.o. daily. 3. Citalopram 40 mg p.o. daily. 4. Cyanocobalamin injection 1000 mcg IM monthly. 5. Donepezil 10 mg p.o. daily. 6. Finasteride 5 mg p.o. daily. 7. Memantine 10 mg p.o. b.i.d. New home medications: 1. Albuterol HFA inhaler 2 puffs inhalation q.4 hours p.r.n. shortness of breath/wheeze. 2. Advair Diskus 250/50 one puff inhalation b.i.d. 3. Prednisone 40 mg p.o. daily x4 more days for a total of 5 days. HISTORY OF PRESENT ILLNESS/HOSPITAL COURSE: Mr. Taveras is an 83-year-old male with a past medical history of borderline diabetes, dementia and BPH, who presented to the ER on 08/04/19 with complaints of fatigue and low appetite, right upper quadrant pain. For full and complete details, please see the history and physical dictated by Samuel Slater MD, but in short, the patient presents with the above symptoms and is noted to require supplemental oxygen. A D-dimer was elevated in the ER prompting a CT angio of the chest. CT angio of the chest was negative, but did note interstitial edema. A transthoracic echocardiogram was ordered and revealed no diastolic or systolic dysfunction, although the patient's EF was noted to be on the lower end of normal at 50% to 55%. He was given one dose of Lasix with mild improvement. The patient was noted to begin wheezing with ambulation the day prior to discharge. He relays a 10-year history of smoking 8 to 10 pipes per day as well as exposure to secondhand smoke. My suspicion is that the patient's new hypoxia and supplemental oxygen requirements are related to undiagnosed COPD with acute exacerbation. He has been started on albuterol p.r.n., Advair Diskus b.i.d., 40 mg prednisone x10 days. He will be sent home on supplemental home oxygen. Mr. Taveras complains of transient right upper quadrant abdominal pain, which is associated with eating. CT imaging of the abdomen and pelvis and ultrasound of the gallbladder revealed cholelithiasis without cholecystitis. On the day of discharge, he reports resolution of his abdominal pain. He notes that the last time he had abdominal pain was yesterday with eating. At this time, the patient is recommended to follow up with his primary care provider regarding further management and possible cholecystectomy. The patient was noted to have a lactic acidosis. This was suspected to be due to dehydration and improved with hydration in the ER. Urinalysis was negative. Blood cultures reveal no growth to date. Chest x-ray showed low lung volumes , but no evidence for acute finding. The patient also complained of left knee pain, which has improved slowly. A left knee x-ray was obtained and revealed soft tissue swelling without acute fracture. On the day of discharge, he complains of right ankle pain that mildly hinders his ambulation as he has pain with ambulation. A right ankle x-ray was performed and revealed no acute fracture. Mr. Taveras worked with physical therapy during his stay. He had an antalgic gait due to right ankle pain. Physical therapy recommends a rolling walker with follow up to outpatient physical therapy, which will be arranged at discharge. The patient was noted to have a history of prediabetes. Hemoglobin A1c was obtained and was resulted at 7.5. A discussion was had regarding management with medications versus diet and exercise. At this time, the patient would like to forgo medication trial with metformin and has opted for diet and exercise x3 months with recommendations to follow up with his primary care provider and repeat hemoglobin A1c. He was given information on heart-healthy, ADA diet. At the time of discharge, the patient complains of left ankle pain and x-ray is pending. He states that his breathing is improved. He still feels that he has some mild wheezing that again began after a walk without oxygen yesterday. He denies abdominal pain, fever, cough. He has no other complaints today. PHYSICAL EXAMINATION: Vital Signs: Temperature 97.9 oral, heart rate 62, respiratory rate 22, oxygen saturation 97% on room air, blood pressure 163/68. General: Mr. Taveras is a well-developed, well-nourished, obese, older white male, who is sitting in his chair with lower extremities at the floor. He is breathing comfortably on room air and appears to be in no acute distress. HEENT : Pupils are equally round and reactive to light. His extraocular movements are intact. Sclerae are nonicteric. His hearing is grossly intact. Oral mucous membranes are moist. There are no lesions. The pharynx is clear without exudate or erythema. The tongue is at midline. The palate elevates symmetrically. Cardiovascular: Regular rate and rhythm with S1, S2 present without murmurs, rubs, clicks, or gallops. There is no JVD or peripheral edema. Pulmonary: Symmetrical chest expansion without use of accessory muscles. End-expiratory wheezing noted throughout bilateral lung walker without rales or rhonchi. Abdomen: Obese. Bowel sounds in all quadrants. Soft, nontender to palpation throughout. Negative Be's sign. Musculoskeletal: Full range of motion in bilateral upper extremities without pain or deformity. Left ankle with painful flexion and extension. Otherwise, ROM intact to bilateral lower extremities. Neuro: The patient is awake. He is alert and oriented x3. Cranial nerves XII through XII are grossly intact. Motor strength is 5/5 bilaterally in the upper and lower extremities. DISCHARGE PLAN: Mr. Taveras will be discharged to home. CONDITION: Good. DIET: 1. Heart-healthy/low-fat. 2. ADA/diabetic. ACTIVITY: 1. As tolerated. 2. Rolling walker for left ankle pain with ambulation. MEDICATIONS: As above. EDUCATION: 1. Follow up with primary care provider in 4 to 7 days, discuss recent hospitalization, hemoglobin A1c level of 7.5, nonobstructing gallstones, referral for PFT for COPD. 2. Suggest recheck hemoglobin A1c in 3 months after trial of diet and exercise. 3. Return to the ER or nearest hospital if you experience any return or worsening of symptoms, chest pain or discomfort, shortness of breath, cough, high fevers, chills, night sweats, worsening abdominal pain, jaundice or scleral icterus, dizziness, lightheadedness, loss of consciousness, or any other worrisome signs or symptoms. This is a summarized report of a complex medical history and hospital stay. For further details, please see the entire medical record. TIME SPENT: Approximately 35 minutes was spent on this discharge, greater than half that time was spent with the patient discussing discharge plans and instructions. LADARIUS CUNNINGHAM [id number]/[facility] #: [id number] REGGIE
== END 2019-08-06 17:47 | disposition home or self-care (01) ==
LOC: ED 14:45 → MEDTELE 08-04 00:53
PROVIDERS: ADMIT Internal Medicine; ATTEND Internal Medicine
DX: J96.01 Acute respiratory failure with hypoxia (principal); J44.1 Chronic obstructive pulmonary disease with (acute) exacerbation; R10.11 Right upper quadrant pain; E87.2 Acidosis; E11.9 Type 2 diabetes mellitus without complications; N40.0 Benign prostatic hyperplasia without lower urinary tract symptoms; F03.90 Unspecified dementia, unspecified severity, without behavioral disturbance, psychotic disturbance, mood disturbance, and anxiety; Z79.82 Long term (current) use of aspirin; Z79.899 Other long term (current) drug therapy; R11.10 Vomiting, unspecified; Z87.891 Personal history of nicotine dependence; M25.569 Pain in unspecified knee; M19.90 Unspecified osteoarthritis, unspecified site; I73.9 Peripheral vascular disease, unspecified; I25.10 Atherosclerotic heart disease of native coronary artery without angina pectoris; K76.0 Fatty (change of) liver, not elsewhere classified
CPT/HCPCS: 36415; 71046; 71275; 74177; 76705; 80048; 80053; 81003; 81015; 83036; 83605; 83690; 83880; 84484; 85025; 85379; 86140; 87040; 93005; 93306; 94640; 96361; 96372; 96374; 96375; 99212; 99285; A9270-GY; C8929; G0378; G0463; G8978-GP-CJ; G8979-GP-CI; J1650; J1940; J2405; J7512; Q9967

== ENCOUNTER 2021-02-16 00:46 | Observation (INO) ==
[2021-02-16 02:18] LABS: Urine Appearance Cloudy; Urine Bilirubin Negative (Negative); Urine Blood Negative (Negative); Urine Color Yellow; Urine Glucose Negative (Negative); Urine Ketones Negative (Negative); Urine Nitrite Negative (Negative); Urine Protein Negative (Negative); Urine Specific Gravity 1.018 (1.002-1.030); Urine Urobilinogen Negative (Negative)
[2021-02-16 02:19] LABS: ABS Lymphocytes 0.5 10^3/ul (1.0-4.8); ABS Monocytes 0.4 10^3/ul (0-0.8); ABS Neutrophils 8.3 10^3/ul (1.5-7.7); Hematocrit 40 % (42-52); Hemoglobin 14.3 g/dL (14.0-18.0); Lymphocyte % 5.7 %; Mean Corpuscular HGB Conc 35 g/dL (31-36); Mean Corpuscular Hemoglobin 33 pg (27-31); Mean Corpuscular Volume 92 fL (80-94); Mean Platelet Volume 6.8 fL (7.4-10.4); Platelet Count 366 10^3/uL (150-450); Red Blood Count 4.38 10^6 /uL (4.18-5.48); Red Cell Distribution Width 14 % (10-15); White Blood Count 9.3 10^3/uL (3.5-10.8)
[2021-02-16 02:34] LABS: ALT 23 U/L (7-52); AST 24 U/L (13-39); Albumin 3.6 g/dL (3.2-5.2); Albumin/Globulin Ratio 1.1 (1-3); Alkaline Phosphatase 71 U/L (35-149); Anion Gap 9 mmol/L (2-11); Blood Urea Nitrogen 14 mg/dL (6-24); CO2 Carbon Dioxide 24 mmol/L (22-32); Calcium 9.4 mg/dL (8.6-10.3); Chloride 97 mmol/L (101-111); EGFR African American 105.6 (>60); EGFR Non-African American 87.3 (>60); Globulin 3.4 g/dL (2-4); Glucose 215 mg/dL (70-100); Magnesium 1.7 mg/dL (1.9-2.7); Potassium 4.1 mmol/L (3.5-5.0); Sodium 130 mmol/L (135-145)
[2021-02-16 02:35] LABS: Troponin I 0.01 ng/mL (<0.03)
[2021-02-16 02:51] LABS: Urine Bacteria Absent (Absent); Urine Red Blood Cell 2+(6-10/hpf) (Absent); Urine Squamous Epithelial Cell Present (Absent); Urine White Blood Cell 2+(11-20/hpf) (Absent)
[2021-02-16 02:55] LABS: Alcohol, S < 10 mg/dL (<10)
[2021-02-16 03:10] LABS: TSH Ultra Thyroid Stim Horm 2.23 mcIU/mL (0.34-5.60)
[2021-02-16] MEDS ORDERED: Magnesium Sulfate IV 3 GM in NS 0.9% 100 ml BAG 100 ML IVPB ONE (05:33)
[2021-02-16] MEDS ORDERED: Ondansetron 4 mg VIAL 2 MG/ML 2 ml VIAL IV PRN (05:41)
[2021-02-16] MEDS ORDERED: Iodixanol (CONTRAST) 320 MG/ML 100 ML SDV IV ONE (05:49)
[2021-02-16] MEDS ORDERED: Albuterol HFA INHALER 8 gm MDI INH PRN (06:06)
[2021-02-16] MEDS ORDERED: Cyanocobalamin INJ 1,000 MCG/ML VIAL 1 ML VIAL IM SCH (07:00)
[2021-02-16] MEDS ORDERED: Magnesium Sulfate 2 GM IV (Premix) IVPB ONE (07:00)
[2021-02-16] MEDS ORDERED: Magnesium Sulfate 1 GM IV 1 GM/100 ML BAG IV ONE (08:00)
[2021-02-16 08:44] LABS: HDL Cholesterol 37.6 mg/dL
[2021-02-16] MEDS: Cholecalciferol (VIT D3) 1,000 unit TAB PO SCH (12:08)
[2021-02-16] MEDS: Mometasone/Formoter 200/5 MDI INH SCH ×2 (12:10→21:09)
[2021-02-16] MEDS ORDERED: Perflutren Lipid Microsphere 3 ML VIAL ONE (14:59)
[2021-02-16] MEDS ORDERED: cefTRIAXone 1 gm/50 mL NS BAG 1 GM/50 ML BAG IVPB SCH (16:00)
[2021-02-16] MEDS ORDERED: Dextrose 50% Syringe 50 ml 25 GM/50 ML SYRINGE IV PUSH PRN (16:55)
[2021-02-16 17:37] LABS: Vitamin B12 113 pg/mL (180-914)
[2021-02-16] MEDS ORDERED: Enoxaparin 40 MG/0.4 ML SYR SUBCUT SCH (18:00)
[2021-02-17] MEDS: Mometasone/Formoter 200/5 MDI INH SCH (08:01)
[2021-02-17] MEDS: Cholecalciferol (VIT D3) 1,000 unit TAB PO SCH (08:30)
[2021-02-17] MEDS ORDERED: Cyanocobalamin INJ 1,000 MCG/ML VIAL 1 ML VIAL IM ONE (10:00)
[2021-02-17 15:39] VITALS: BP 122/52
== END 2021-02-17 16:30 | disposition home or self-care (01) ==
LOC: ED 00:46 → MEDTELE 00:46
PROVIDERS: ADMIT Hospitalist; ATTEND Internal Medicine